=== PATIENT | female | born 1940 | race Caucasian/White ===

== ENCOUNTER 2017-04-25 16:43 | Day surgery (SDC) | payer MEDICARE, BC ==
--- NOTE | 2017-04-25 17:27 | EDM.PDOC ---
ED HPI GENERAL MEDICAL PROBLEM - General Chief Complaint: Abdominal Pain Stated Complaint: HERNIA Time Seen by Provider: 04/25/17 17:21 Source of Information: Reports: Patient History Limitations: Reports: No Limitations - History of Present Illness INITIAL COMMENTS - FREE TEXT/NARRATIVE: Pt with umbilical hernia for years. Now with increased pain x 2 days. No injury. Has noted diarrhea x 2 days. Mild nausea. Denies fever. Last ate about 1:30pm. Onset: Sudden Onset Date: 04/24/17 Duration: Getting Worse Location: Reports: Abdomen Quality: Reports: Burning Severity: Mild Improves with: Reports: Rest Worsens with: Reports: Movement Context: Reports: Other Associated Symptoms: Reports: Nausea/Vomiting Middle Abdomen Pain Score (Numeric/FACES): 2 - Related Data Allergies Allergy/AdvReac Type Severity Reaction Status Date / Time acetaminophen [From Vicodin] Allergy Intermediate GI Verified 04/25/17 17:07 INTOLERANCE codeine Allergy Intermediate GI UPSET Verified 04/25/17 17:07 doxycycline Allergy Intermediate GI Verified 04/25/17 17:07 INTOLERANCE hydrocodone bitartrate Allergy Intermediate GI Verified 04/25/17 17:07 [From Vicodin] INTOLERANCE Home Meds: Home Meds Aspirin [Trish Chewable Aspirin] 81 mg PO DAILY 06/07/13 [History] Calcium Carbonate/Vitamin D3 [Calcarb 600 with Vit D] 1 each PO DAILY 06/07/13 [ History] HCTZ/Triamterene [Maxzide 25-37.5 MG] 1 tab OR BID 06/07/13 [History] Levothyroxine Sodium [Synthroid] 75 mcg PO DAILY 06/07/13 [History] Metoprolol Tartrate 50 mg OR BID 06/07/13 [History] atorvaSTATin [Lipitor] 10 mg PO BEDTIME 06/07/13 [History] MV,Ca,Min/Iron Fum/FA/Vit K [Multi For Her Tablet] 1 each PO DAILY 06/08/13 [ History] Levothyroxine [Synthroid] 88 mcg PO ACBREAKFAST 04/25/17 [History] Past Medical History HEENT History: Reports: Cataract Cardiovascular History: Reports: High Cholesterol, Hypertension Gastrointestinal History: Reports: Cholelithiasis, Hemorrhoids 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: Reports: Prolapsed Uterus Musculoskeletal History: Reports: Osteoporosis Endocrine/Metabolic History: Reports: Diabetes, Type II Hematologic History: Reports: Anemia, Blood Transfusion(s) Dermatologic History: Reports: Cellulitis - Past Surgical History HEENT Surgical History: Reports: Cataract Surgery GI Surgical History: Reports: Appendectomy, Cholecystectomy, Colonoscopy Female Surgical History: Reports: D&C Musculoskeletal Surgical History: Reports: Knee Replacement Social & Family History - Tobacco Use Smoking Status *Q: Never Smoker Years of Tobacco use: 3 Used Tobacco, but Quit: Yes Month Tobacco Last Used: years ago Second Hand Smoke Exposure: No - Caffeine Use Caffeine Use: Reports: Coffee - Alcohol Use Days Per Week of Alcohol Use: 0 - Recreational Drug Use Recreational Drug Use: No ED ROS GENERAL - Review of Systems Review Of Systems: See Below Constitutional: Reports: No Symptoms HEENT: Reports: No Symptoms Respiratory: Reports: No Symptoms Cardiovascular: Reports: No Symptoms GI/Abdominal: Reports: Abdominal Pain, Diarrhea, Nausea : Reports: No Symptoms Musculoskeletal: Reports: No Symptoms Skin: Reports: No Symptoms Neurological: Reports: No Symptoms Psychiatric: Reports: No Symptoms ED EXAM, GI/ABD - Physical Exam Exam: See Below Exam Limited By: No Limitations General Appearance: Alert, WD/WN, No Apparent Distress Ears: Normal External Exam, Normal Canal, Hearing Grossly Normal, Normal TMs Nose: Normal Inspection, Normal Mucosa, No Blood Throat/Mouth: Normal Inspection, Normal Lips, Normal Teeth, Normal Gums, Normal Oropharynx, Normal Voice, No Airway Compromise Head: Atraumatic, Normocephalic Neck: Normal Inspection, Supple, Non-Tender, Full Range of Motion Respiratory/Chest: No Respiratory Distress, Lungs Clear, Normal Breath Sounds, No Accessory Muscle Use, Chest Non-Tender Cardiovascular: Normal Peripheral Pulses, Regular Rate, Rhythm, No Edema, No Gallop, No JVD, No Murmur, No Rub GI/Abdominal Exam: Hernia (umbilical, tender to palpation, does reduce) Extremities: Normal Inspection, Normal Range of Motion, Non-Tender, Normal Capillary Refill, No Pedal Edema Neurological: Alert, Oriented, CN II-XII Intact, Normal Cognition, Normal Gait, Normal Reflexes, No Motor/Sensory Deficits Psychiatric: Normal Affect, Normal Mood Skin Exam: Warm, Dry, Intact, Normal Color, No Rash Course - Vital Signs Last Recorded V/S: Last Vital Signs Temp 98.4 F 04/25/17 16:59 Pulse 89 04/25/17 16:59 Resp 18 04/25/17 16:59 BP 195/81 H 04/25/17 16:59 Pulse Ox 92 L 04/25/17 16:59 - Orders/Labs/Meds Orders: Active Orders 24 hr Category Date Time Status EKG Documentation Completion [RC] ASDIRECTED Care 04/25/17 17:40 Active Lactated Ringers [Ringers, Lactated] 1,000 ml Med 04/25/17 19:00 Active IV ASDIRECTED EKG 12 Lead [EK] Routine Ther 04/25/17 17:40 Ordered Medication Orders Lactated Ringer's (Ringers, Lactated) 1,000 mls @ 200 mls/hr IV ASDIRECTED GERARDO Last Admin: 04/25/17 19:02 Dose: 200 mls/hr Labs: Laboratory Tests 04/25/17 04/25/17 04/25/17 Range/Units 17:37 17:37 17:37 WBC 11.2 H (4.5-11.0) K/uL RBC 4.18 (3.30-5.50) M/uL Hgb 13.1 (12.0-15.0) g/dL Hct 40.3 (36.0-48.0) % MCV 96 (80-98) fL MCH 31 (27-31) pg MCHC 33 (32-36) % Plt Count 249 (150-400) K/uL Neut % (Auto) 71 H (36-66) % Lymph % (Auto) 19 L (24-44) % [place] % (Auto) 9 H (2-6) % Eos % (Auto) 2 (2-4) % Baso % (Auto) 0 (0-1) % Sodium 143 (140-148) mmol/L Potassium 4.1 (3.6-5.2) mmol/L Chloride 104 (100-108) mmol/L Carbon Dioxide 31 (21-32) mmol/L Anion Gap 8.0 (5.0-14.0) mmol/L BUN 29 H (7-18) mg/dL Creatinine 1.3 H (0.6-1.0) mg/dL Est Cr Clr Drug Dosing 26.86 mL/min Estimated GFR (MDRD) 40 L (>60) Glucose 125 H (74-106) mg/dL Lactic Acid 1.8 (0.4-2.0) mmol/L Calcium 9.7 (8.5-10.1) mg/dL Total Bilirubin 0.4 (0.2-1.0) mg/dL AST 18 (15-37) U/L ALT 22 (12-78) U/L Alkaline Phosphatase 85 (46-116) U/L Total Protein 7.7 (6.4-8.2) g/dL Albumin 3.3 L (3.4-5.0) g/dL Globulin 4.4 H (2.3-3.5) g/dL Albumin/Globulin Ratio 0.8 L (1.2-2.2) Meds: Medications Generic Name Dose Route Start Last Admin Trade Name Freq PRN Reason Stop Dose Admin Lactated Ringer's 1,000 mls @ 200 mls/hr 04/25/17 19:00 04/25/17 19:02 Ringers, Lactated IV 200 mls/hr ASDIRECTED GERARDO Administration Discontinued Medications Generic Name Dose Route Start Last Admin Trade Name Freq PRN Reason Stop Dose Admin Cefazolin Sodium/Dextrose 2 gm 50 mls @ 100 mls/hr 04/25/17 18:36 / Premix IV 04/25/17 19:05 ONETIME ONE Departure - Departure Time of Disposition: 19:25 Disposition: Admitted As Inpatient 67 Condition: Fair Clinical Impression: Umbilical hernia Qualifiers: Obstruction and gangrene presence: without obstruction or gangrene Qualified Code(s): K42.9 - Umbilical hernia without obstruction or gangrene - Discharge Information Referrals: Janice Carolina PAID SEARCH MARKETING STRATEGIST [Primary Care Provider] - Forms: ED Department Discharge Additional Instructions: Labs drawn. CBC, CMP, lactic acid reviewed. Surgeon, Dr. Agosto called. EKG completed. Normal sinus rhythm with rate of 84. No acute ST changes present. Discussed options with pt. Pt able to go to OR for umbilical hernia repair today. Discussed risk vs benefit of procedure. Pt cleared today for surgery. Will need to be discharged home with family as she lives alone. Dr Agosto to assume care. Pt transferred to the OR in stable condition. - Problem List & Annotations (1) Umbilical hernia SNOMED Code(s): 747811333, 241144770 Code(s): K42.9 - UMBILICAL HERNIA WITHOUT OBSTRUCTION OR GANGRENE Status: Acute Priority: Medium Current Visit: Yes Qualifiers: Obstruction and gangrene presence: without obstruction or gangrene Qualified Code(s): K42.9 - Umbilical hernia without obstruction or gangrene - My Orders Last 24 Hours: My Active Orders 04/25/17 17:40 EKG Documentation Completion [RC] ASDIRECTED EKG 12 Lead [EK] Routine - Assessment/Plan Last 24 Hours: My Active Orders 04/25/17 17:40 EKG Documentation Completion [RC] ASDIRECTED EKG 12 Lead [EK] Routine
[2017-04-25] MEDS ORDERED: Lactated Ringers 1,000 ML IV SCH (19:00)
[2017-04-25] MEDS ORDERED: Lidocaine 1% with EPINEPHrine 1:100,000 50 ML MDV ONE (19:30)
[2017-04-25] MEDS ORDERED: Bupivacaine 0.5% 50 ML MDV ONE (19:30)
[2017-04-25] MEDS ORDERED: Succinylcholine 200 MG/10 ML MDV ONE (19:39)
[2017-04-25] MEDS ORDERED: Rocuronium 50 MG/5 ML Vial ONE (19:39)
[2017-04-25] MEDS ORDERED: Dexamethasone 4 MG/ML SDV ONE (19:39)
[2017-04-25] MEDS ORDERED: Propofol 200 MG/20 ML SDV ONE (19:39)
[2017-04-25] MEDS ORDERED: Glycopyrrolate 0.2 MG/ML 5 ML MDV ONE (19:39)
[2017-04-25] MEDS ORDERED: Midazolam 1 MG/ML 2 ML SDV ONE (19:39)
[2017-04-25] MEDS ORDERED: Ondansetron 4 MG/2 ML SDV ONE (19:39)
[2017-04-25] MEDS ORDERED: Neostigmine Methylsulfate 1 MG/ML 5 ML Syringe ONE (19:39)
[2017-04-25] MEDS: ceFAZolin 2 GM in Premix Bag 1 BAG IV ONE ×2 (19:40→19:41)
[2017-04-25] MEDS ORDERED: Naloxone 0.4 MG/ML SDV ONE (20:38)
[2017-04-25] MEDS ORDERED: Labetalol 20 MG/4 ML Syringe IVPUSH ONE ×2 (20:56→21:18)
[2017-04-25] MEDS ORDERED: Labetalol 20 MG/4 ML Syringe ONE (20:59)
[2017-04-25] MEDS ORDERED: Meperidine PF 50 MG/ML Syringe IM ONE (21:05)
[2017-04-25] MEDS ORDERED: hydrOXYzine HCl 100 MG/2 ML SDV IM ONE (21:06)
[2017-04-25] MEDS ORDERED: hydrOXYzine HCl 100 MG/2 ML SDV ONE (21:08)
[2017-04-25] MEDS ORDERED: Meperidine PF 50 MG/ML Syringe ONE (21:08)
[2017-04-25] MEDS ORDERED: Docusate Sodium 100 MG Cap PO PRN (21:14)
[2017-04-25] MEDS ORDERED: Ondansetron 4 MG/2 ML SDV IVPUSH PRN (21:14)
[2017-04-25] MEDS ORDERED: D5 1/2 NS w/ 20 mEq/L KCl 1,000 ML IV SCH (21:30)
[2017-04-25] MEDS ORDERED: fentaNYL/Normal Saline 600 MCG/30 ML PCA Vial IV PRN (22:04)
[2017-04-25] MEDS ORDERED: Naloxone 0.4 MG/ML SDV IVPUSH PRN (22:04)
[2017-04-25] MEDS ORDERED: Nitroglycerin 2% Oint 1 GM UD Packet TOP PRN (22:21)
[2017-04-25] MEDS: Metoprolol Tartrate 50 MG Tab PO SCH (22:39)
[2017-04-26] MEDS ORDERED: Levothyroxine 88 MCG Tab PO SCH (07:30)
[2017-04-26] MEDS ORDERED: Levothyroxine 75 MCG Tab PO SCH (07:30)
[2017-04-26] MEDS ORDERED: Calcium Carbonate/Vitamin D3 1500 MG-400 Units Tab PO SCH (09:00)
[2017-04-26] MEDS ORDERED: Hydrochlorothiazide/Triamterene 25-37.5 MG Cap PO SCH (09:00)
[2017-04-26] MEDS: Metoprolol Tartrate 50 MG Tab PO SCH (09:43)
[2017-04-26] MEDS ORDERED: traMADol 50 MG Tab PO PRN (10:38)
--- NOTE | 2017-04-26 10:44 | PCM.DCSUM1 ---
Discharge Summary - Hospital Course Free Text/Narrative:: This 76 year old white female has had an umbilical hernia for a long time which was always reducible. Two days ago it became incarcerated, causing her to come to the ER last night with a lot of umbilical pain. She was taken to the OR where her hernia was reduced (it was omentum) and then repaired with an 8 cm Ventralex mesh patch with straps. She received Ancef 2 grams IV preoperatively. She was kept over night. She feels much better today and is eating. She is discharged to home in good condition to follow up with me in about two weeks. Brief History: See above narrative. - Discharge Data Discharge Date: 04/26/17 Discharge Disposition: Home, Self-Care 01 Condition: Good - Discharge Diagnosis/Problem(s) (1) Umbilical hernia SNOMED Code(s): 718176959, [id number] ICD Code: K42.9 - UMBILICAL HERNIA WITHOUT OBSTRUCTION OR GANGRENE Status: Acute Priority: Medium Current Visit: Yes Qualifiers: Obstruction and gangrene presence: without obstruction or gangrene Qualified Code(s): K42.9 - Umbilical hernia without obstruction or gangrene - Patient Summary/Data Operative Procedure(s) Performed: See above narrative. Consults: Consultations 04/25/17 21:14 Respiratory Care Assess and Treatment [CONS] Routine Comment: Physician Instructions: Hospital Course: See above narrative. - Patient Instructions Diet: Usual Diet as Tolerated Activity: No Lifting Over 10 Pounds (Until I see her in about two weeks. ), No Strenuous Activities Driving, Other: Do not drive while taking Tramadol. Showering/Bathing, Other: December shower Thursday. Notify Provider of: Fever, Increased Pain, Swelling and Redness, Drainage, Nausea and/or Vomiting - Discharge Plan Prescriptions/Med Rec: traMADol [Ultram] 50 mg PO Q6H PRN #30 tab PRN Reason: Abdominal Pain Home Medications: Home Meds Calcium Carbonate/Vitamin D3 [Calcarb 600 with Vit D] 1 each PO DAILY 06/07/13 [ History] HCTZ/Triamterene [Maxzide 25-37.5 MG] 1 tab OR BID 06/07/13 [History] Metoprolol Tartrate 50 mg OR BID 06/07/13 [History] atorvaSTATin [Lipitor] 10 mg PO BEDTIME 06/07/13 [History] MV,Ca,Min/Iron Fum/FA/Vit K [Multi For Her Tablet] 1 each PO DAILY 06/08/13 [ History] Levothyroxine [Synthroid] 88 mcg PO ACBREAKFAST 04/25/17 [History] traMADol [Ultram] 50 mg PO Q6H PRN #30 tab 04/25/17 [Rx] Forms: ED Department Discharge Referrals: Felix Butterfield MD [Physician] - (See me in about two weeks in [facility]. ) Janice Carolina NP [Primary Care Provider] - - Discharge Summary/Plan Comment DC Time >30 min.: Yes Discharge Summary/Plan Comment: See above narrative. - Patient Data Vitals - Most Recent: Last Vital Signs Temp 96.7 F 04/26/17 07:35 Pulse 70 04/26/17 09:43 Resp 16 04/26/17 07:35 BP 129/66 04/26/17 09:43 Pulse Ox 94 L 04/26/17 07:35 Weight - Most Recent: 164 lb 14.492 oz I&O - Last 24 hours: Intake & Output 04/25/17 04/26/17 04/26/17 22:59 06:59 14:59 Intake Total 689 120 Output Total 200 325 Balance 489 -205 Lab Results - Last 24 hrs: Laboratory Results - last 24 hr 04/25/17 04/25/17 04/25/17 Range/Units 17:37 17:37 17:37 WBC 11.2 H (4.5-11.0) K/uL RBC 4.18 (3.30-5.50) M/uL Hgb 13.1 (12.0-15.0) g/dL Hct 40.3 (36.0-48.0) % MCV 96 (80-98) fL MCH 31 (27-31) pg MCHC 33 (32-36) % Plt Count 249 (150-400) K/uL Neut % (Auto) 71 H (36-66) % Lymph % (Auto) 19 L (24-44) % [place] % (Auto) 9 H (2-6) % Eos % (Auto) 2 (2-4) % Baso % (Auto) 0 (0-1) % Sodium 143 (140-148) mmol/L Potassium 4.1 (3.6-5.2) mmol/L Chloride 104 (100-108) mmol/L Carbon Dioxide 31 (21-32) mmol/L Anion Gap 8.0 (5.0-14.0) mmol/L BUN 29 H (7-18) mg/dL Creatinine 1.3 H (0.6-1.0) mg/dL Est Cr Clr Drug Dosing 26.86 mL/min Estimated GFR (MDRD) 40 L (>60) Glucose 125 H (74-106) mg/dL Lactic Acid 1.8 (0.4-2.0) mmol/L Calcium 9.7 (8.5-10.1) mg/dL Total Bilirubin 0.4 (0.2-1.0) mg/dL AST 18 (15-37) U/L ALT 22 (12-78) U/L Alkaline Phosphatase 85 (46-116) U/L Total Protein 7.7 (6.4-8.2) g/dL Albumin 3.3 L (3.4-5.0) g/dL Globulin 4.4 H (2.3-3.5) g/dL Albumin/Globulin Ratio 0.8 L (1.2-2.2) Med Orders - Current: Current Medications Atorvastatin Calcium (Lipitor) 10 mg PO BEDTIME [facility] Calcium Carbonate (Caltrate 600+D 1500 Mg-400 Units) 1 tab PO DAILY [facility] Last Admin: 04/26/17 09:42 Dose: 1 tab Docusate Sodium (Colace) 100 mg PO BID PRN PRN Reason: Constipation Fentanyl Citrate (Fentanyl In Ns 20 Mcg/Ml 30 Ml [facility] Physicist) 0 mcg IV ASDIRECTED PRN; Protocol PRN Reason: Pain Last Admin: 04/25/17 22:34 Dose: 600 mcg Lactated Ringer's (Ringers, Lactated) 1,000 mls @ 200 mls/hr IV ASDIRECTED GERARDO Last Admin: 04/25/17 19:02 Dose: 200 mls/hr Potassium Chloride/Dextrose/Sod Cl (D5 1/2 Ns W/ 20 Meq/L Kcl) 1,000 mls @ 75 mls/hr IV ASDIRECTED GERARDO Last Admin: 04/25/17 22:40 Dose: 75 mls/hr Levothyroxine Sodium (Synthroid) 88 mcg PO ACBREAKFAST GERARDO Last Admin: 04/26/17 09:41 Dose: 88 mcg Metoprolol Tartrate (Lopressor) 50 mg PO BID [facility] Last Admin: 04/26/17 09:43 Dose: 50 mg Miscellaneous Information (Remove Patch) 1 ea TRDERM Q6H PRN PRN Reason: IF NITRO OINT USED Naloxone HCl (Narcan) 0.4 mg IVPUSH Q2M PRN PRN Reason: Respiratory Distress Nitroglycerin (Nitro-Bid 2%) 1 gm TOP Q6H PRN PRN Reason: BP > 160/100 Ondansetron HCl (Zofran) 4 mg IVPUSH Q6H PRN PRN Reason: Nausea/Vomiting Tramadol HCl (Ultram) 50 mg PO Q4H PRN PRN Reason: Abdominal Pain Triamterene/HCTZ (Dyazide 25-37.5 Mg) 1 each PO BID [facility] Last Admin: 04/26/17 09:42 Dose: 1 each Discontinued Medications Bupivacaine HCl (Marcaine 0.5%) Confirm Administered Dose 50 ml .ROUTE .STK-MED ONE Stop: 04/25/17 19:31 Last Admin: 04/25/17 20:29 Dose: 5 ml Dexamethasone (Dexamethasone) Confirm Administered Dose 4 mg .ROUTE .STK-MED ONE Stop: 04/25/17 19:40 Fentanyl Citrate (Fentanyl) Confirm Administered Dose 500 mcg .ROUTE .STK-MED ONE Stop: 04/25/17 19:40 Glycopyrrolate (Robinul) Confirm Administered Dose 1 mg .ROUTE .STK-MED ONE Stop: 04/25/17 19:40 Hydroxyzine HCl (Vistaril) 50 mg IM ONETIME ONE Stop: 04/25/17 21:07 Last Admin: 04/25/17 21:14 Dose: 50 mg Hydroxyzine HCl (Vistaril) Confirm Administered Dose 100 mg .ROUTE .STK-MED ONE Stop: 04/25/17 21:09 Last Admin: 04/25/17 22:32 Dose: Not Given Cefazolin Sodium/Dextrose 2 gm (/ Premix) 50 mls @ 100 mls/hr IV ONETIME ONE Stop: 04/25/17 19:05 Last Admin: 04/25/17 19:41 Dose: 100 mls/hr Labetalol HCl (Normodyne) 5 mg IVPUSH ONETIME ONE PRN Reason: Protocol Stop: 04/25/17 20:57 Last Admin: 04/25/17 21:03 Dose: 5 mg Labetalol HCl (Normodyne) Confirm Administered Dose 20 mg .ROUTE .STK-MED ONE Stop: 04/25/17 21:00 Last Admin: 04/25/17 21:22 Dose: 5 mg Labetalol HCl (Normodyne) 5 mg IVPUSH ONETIME ONE PRN Reason: Protocol Stop: 04/25/17 21:19 Last Admin: 04/25/17 22:32 Dose: Not Given Lidocaine/Epinephrine (Xylocaine 1% With Epinephrine 1:100,000) Confirm Administered Dose 50 ml .ROUTE .STK-MED ONE Stop: 04/25/17 19:31 Last Admin: 04/25/17 20:29 Dose: 5 ml Meperidine HCl (Demerol) 50 mg IM ONETIME ONE Stop: 04/25/17 21:06 Last Admin: 04/25/17 22:31 Dose: Not Given Meperidine HCl (Demerol) Confirm Administered Dose 50 mg .ROUTE .STK-MED ONE Stop: 04/25/17 21:09 Last Admin: 04/25/17 21:14 Dose: 50 mg Midazolam HCl (Versed 1 Mg/Ml) Confirm Administered Dose 2 mg .ROUTE .STK-MED ONE Stop: 04/25/17 19:40 Naloxone HCl (Narcan) Confirm Administered Dose 0.4 mg .ROUTE .STK-MED ONE Stop: 04/25/17 20:39 Neostigmine Methylsulfate (Neostigmine) Confirm Administered Dose 5 mg .ROUTE .STK-MED ONE Stop: 04/25/17 19:40 Ondansetron HCl (Zofran) Confirm Administered Dose 4 mg .ROUTE .STK-MED ONE Stop: 04/25/17 19:40 Propofol (Diprivan 20 Ml) Confirm Administered Dose 200 mg .ROUTE .STK-MED ONE Stop: 04/25/17 19:40 Rocuronium Villalba (Zemuron) Confirm Administered Dose 50 mg .ROUTE .STK-MED ONE Stop: 04/25/17 19:40 Succinylcholine Chloride (Quelicin) Confirm Administered Dose 200 mg .ROUTE .STK -MED ONE Stop: 04/25/17 19:40 *Q Meaningful Use (DIS) - VTE *Q VTE Criteria *Q: - Stroke *Q Stroke Criteria *Q: - AMI *Q AMI Criteria *Q:
[2017-04-26 10:54] VITALS: BP 144/66
[2017-04-26] MEDS ORDERED: atorvaSTATin 10 MG Tab PO SCH (21:00)
--- NOTE | 2017-04-28 10:31 | OR ---
DATE OF PROCEDURE: 04/25/2017 PREOPERATIVE DIAGNOSIS: Incarcerated umbilical hernia. POSTOPERATIVE DIAGNOSIS: Incarcerated with omentum umbilical hernia. PROCEDURE: Reduction of incarcerated umbilical hernia and repair with an 8 cm Ventralex mesh patch with straps. ANESTHESIA: General endotracheal. INDICATION: This is a 76-year-old white female who has an umbilical hernia. This has really not caused much problems until yesterday when the pain became quite severe, was incarcerated, she could not reduce it. She presented to the emergency room where they could not reduce it. She was taken to the operating room for reduction and repair of this incarcerated umbilical hernia. I counseled her for surgery including placing mesh and she gave her informed consent to proceed. DESCRIPTION OF PROCEDURE: After adequate general endotracheal anesthesia was obtained, the patient's abdomen was prepped and draped in the usual sterile fashion. Time -out was held. An infraumbilical semicircular incision was made. The umbilicus was from the hernia sac and the sac was dissected free, excised and delivered from the field. It was noted that the sac was filled with omentum. We distended the omentum outward to narrow the body of it and we were then digitally able to reduce the omentum back into the abdominal cavity. We obtained an 8 cm in diameter circular Ventralex mesh patch with straps. This was placed down underneath the fascia, through the defect. The straps were pulled up and cut to appropriate length and attached to the anterior fascia with horizontal mattress stitches of 2-0 Vicryl. All looked well. The hernia defect was closed over the mesh with a running stitch of 2-0 Vicryl. The umbilicus was reattached to the underlying fascia with an interrupted stitch of 2-0 Vicryl. Lidocaine 1% with epinephrine in a 50:50 mix with 0.5% Marcaine was infiltrated about the incision but not so that would affect the umbilical flap. The skin was then closed with a subcuticular stitch of 4-0 Vicryl. Dermabond was applied. The anesthesia was reversed. She was extubated and brought to recovery room in good condition. Felix Butterfield MD /[id number] MADI
== END 2017-04-26 13:37 | disposition home or self-care (01) ==
LOC: JP.ED 16:43 → JP.SDS 19:40 → JP.MS 22:06 → JP.SDS 04-26 13:37
PROVIDERS: ATTEND Surgery
DX: K42.0 Umbilical hernia with obstruction, without gangrene (principal); I10 Essential (primary) hypertension; E78.00 Pure hypercholesterolemia, unspecified; E11.9 Type 2 diabetes mellitus without complications; Z79.82 Long term (current) use of aspirin; Z79.899 Other long term (current) drug therapy; Z88.1 Allergy status to other antibiotic agents; Z88.8 Allergy status to other drugs, medicaments and biological substances; Z90.49 Acquired absence of other specified parts of digestive tract; Z98.890 Other specified postprocedural states; Z96.659 Presence of unspecified artificial knee joint
CPT/HCPCS: 36415; 49587; 80053; 83605; 85025; 88302; 93005; 93010; 94762; 96361; 96365; 99285; A9270; C1781; J0690; J1100; J2175; J2250; J2310; J2405; J2704; J2710; J3010; J3410; J3480; J7120; J0330

== ENCOUNTER 2018-10-11 06:32 | Day surgery (SDC) | payer MEDICARE, BC ==
[2018-10-11] MEDS ORDERED: Lactated Ringers 1,000 ML IV SCH (07:00)
[2018-10-11] MEDS ORDERED: Midazolam 1 MG/ML 2 ML SDV ONE (07:17)
[2018-10-11] MEDS ORDERED: Propofol 200 MG/20 ML SDV ONE (07:17)
[2018-10-11] MEDS ORDERED: fentaNYL 100 MCG/2 ML SDV ONE (07:17)
[2018-10-11] MEDS ORDERED: Ampicillin 2 GM in Sodium Chloride 0.9% 100 ML IV ONE (07:45)
[2018-10-11 09:25] VITALS: BP 145/88
--- NOTE | 2018-10-12 07:26 | OR ---
DATE OF PROCEDURE: 10/11/2018 PREOPERATIVE DIAGNOSES: History of colon polyps, diarrhea. POSTOPERATIVE DIAGNOSES: History of colon polyps, diarrhea. PROCEDURE: Colonoscopy to the cecum with random colonic biopsies. SURGEON: Felix Butterfield MD ANESTHESIA: IV anesthesia with monitored anesthesia care. INDICATION: This 77-year-old white female is referred for a colonoscopy because of a history of colon polyp. She says she was supposed to have another colonoscopy in 5 years, but it has been 7 years since her last colonoscopic exam. She complains of diarrhea, which is chronic. I counseled her for a colonoscopy with possible biopsy and/or polypectomy, including risks and alternatives, and she gave her informed consent to proceed. PROCEDURE IN DETAIL: The patient was placed in the left lateral decubitus position. IV anesthesia was administered by the Anesthesia Service. Time-out was held. A rectal exam was performed, which was unremarkable. The flexible video Olympus colonoscope was introduced through her anus, up her rectum, out her colon, all the way to the cecum. Once the cecum was reached, the scope was slowly withdrawn, examining the mucosa throughout. No mucosal abnormalities were noted. We did obtain random colonic biopsies throughout her entire colon, looking for microscopic colitis. The scope was retroflexed in the rectum with the distal rectum showing some hemorrhoids, otherwise unremarkable. The scope was straightened and removed. She tolerated the procedure well. Felix Butterfield MD /[id number]
== END 2018-10-11 10:15 | disposition home or self-care (01) ==
LOC: JP.SDS 06:32
PROVIDERS: ATTEND Surgery
DX: K52.9 Noninfective gastroenteritis and colitis, unspecified (principal); K64.9 Unspecified hemorrhoids; I10 Essential (primary) hypertension; E11.9 Type 2 diabetes mellitus without complications; Z86.010 Personal history of colon polyps
CPT/HCPCS: 45380; J0290; J2250; J2704; J3010; J7030; J7120; 88305

== ENCOUNTER 2018-12-18 16:49 | Emergency (ER) | payer MEDICARE, BC ==
[2018-12-18] MEDS ORDERED: Nitroglycerin 0.4 MG Tab.SL SL PRN (18:39)
[2018-12-18] MEDS ORDERED: Sodium Chloride 0.9% 10 ML Syringe FLUSH PRN (18:39)
--- NOTE | 2018-12-18 18:46 | EDM.PDOC ---
ED HPI GENERAL MEDICAL PROBLEM - General Chief Complaint: Respiratory Problem Stated Complaint: SOB Time Seen by Provider: 12/18/18 18:24 Source of Information: Reports: Patient, Family, RN Notes Reviewed History Limitations: Reports: No Limitations - History of Present Illness INITIAL COMMENTS - FREE TEXT/NARRATIVE: 78-year-old female presents emergency department today with complaint of shortness of breath, she states she's been progressively getting more short of breath over the last couple months was evaluated in the clinic on 3 days prior felt to have community-acquired pneumonia started on antibiotics of Ceftin and azithromycin given an albuterol inhaler, she states the headache inhaler does make her feel better for about an hour. Her shortness of breath is positional worse when she bends over to tie her shoes. She's noticed increasing shortness of breath when she goes up the stairs worse when she lies down she has to sit in a chair to help with breathing. She has no heart history she has not noticed a significant weight gain however she does have some edema in her lower extremities which is new - Related Data Allergies Allergy/AdvReac Type Severity Reaction Status Date / Time acetaminophen [From Vicodin] Allergy Intermediate GI Verified 12/18/18 18:04 INTOLERANCE codeine Allergy Intermediate GI UPSET Verified 12/18/18 18:04 doxycycline Allergy Intermediate GI Verified 12/18/18 18:04 INTOLERANCE hydrocodone bitartrate Allergy Intermediate GI Verified 12/18/18 18:04 [From Vicodin] INTOLERANCE indomethacin Allergy Diarrhea Verified 12/18/18 18:04 Home Meds: Home Meds HCTZ/Triamterene [Maxzide 25-37.5 MG] 1 tab OR DAILY 06/07/13 [History] Metoprolol Tartrate 50 mg OR BID 06/07/13 [History] atorvaSTATin [Lipitor] 10 mg PO BEDTIME 06/07/13 [History] MV,Ca,Min/Iron Fum/FA/Vit K [Multi For Her Tablet] 1 each PO DAILY 06/08/13 [ History] Levothyroxine [Synthroid] 88 mcg PO ACBREAKFAST 04/25/17 [History] Allopurinol [Zyloprim] 200 mg PO DAILY 10/07/18 [History] Aspirin [Ecotrin] 1 tab PO DAILY 10/07/18 [History] Cholestyramine/Sucrose [Cholestyramine Packet] 4 gm PO DAILY 10/07/18 [History] Dextran 70/Hypromellose [Artificial Tears] 1 drp OP DAILY 10/07/18 [History] Albuterol [Ventolin HFA] 2 puff IH Q4HR 12/18/18 [History] Azithromycin [Zithromax] 250 mg PO DAILY 12/18/18 [History] Cefdinir [Omnicef] 300 mg PO BID 12/18/18 [History] Past Medical History HEENT History: Reports: Cataract Cardiovascular History: Reports: High Cholesterol, Hypertension Respiratory History: Reports: SOB Other Respiratory History: WALKING DISTANCE Gastrointestinal History: Reports: Cholelithiasis, Hemorrhoids, Other (See Below ) Other Gastrointestinal History: DIARRHEA Genitourinary History: Reports: Other (See Below) Other Genitourinary History: pt. to see a urologist 05/2017. pt. 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: , Prolapsed Uterus Musculoskeletal History: Reports: Arthritis, Gout, Osteoarthritis, Osteoporosis Endocrine/Metabolic History: Reports: Diabetes, Type II, Hypoparathyroidism Hematologic History: Reports: Anemia, Blood Transfusion(s) Dermatologic History: Reports: Cellulitis - Infectious Disease History Infectious Disease History: Reports: Chicken Pox, Measles, Meningitis, Mumps - Past Surgical History HEENT Surgical History: Reports: Cataract Surgery, Oral Surgery Cardiovascular Surgical History: Reports: None Respiratory Surgical History: Reports: None GI Surgical History: Reports: Appendectomy, Cholecystectomy, Colonoscopy, Hernia , Abdominal Other GI Surgeries/Procedures: HIATAL HERNIA Female Surgical History: Reports: D&C Musculoskeletal Surgical History: Reports: Knee Replacement Other Musculoskeletal Surgeries/Procedures:: BOTH KNEES Dermatological Surgical History: Reports: Other (See Below) Social & Family History - Family History Family Medical History: Noncontributory - Tobacco Use Smoking Status *Q: Former Smoker Used Tobacco, but Quit: Yes Month/Year Tobacco Last Used: 1960 - Caffeine Use Caffeine Use: Reports: Soda - Recreational Drug Use Recreational Drug Use: No ED ROS GENERAL - Review of Systems Review Of Systems: See Below Constitutional: Denies: Fever, Chills, Weakness, Diaphoresis HEENT: Reports: No Symptoms Respiratory: Reports: Shortness of Breath, Cough. Denies: Wheezing, Sputum Cardiovascular: Reports: Dyspnea on Exertion GI/Abdominal: Reports: No Symptoms : Reports: No Symptoms Musculoskeletal: Reports: No Symptoms Skin: Reports: No Symptoms (He had to for me as well) Neurological: Reports: No Symptoms ED EXAM, GENERAL - Physical Exam Exam: See Below (Lab last to pick that after picked a headset to pick which one) Exam Limited By: No Limitations General Appearance: Alert, No Apparent Distress Neck: Normal Inspection, Supple, Non-Tender, Full Range of Motion Respiratory/Chest: No Respiratory Distress, Lungs Clear, Normal Breath Sounds, No Accessory Muscle Use, Chest Non-Tender Cardiovascular: No Murmur, Bradycardia GI/Abdominal: Soft, Non-Tender Extremities: Normal Inspection, Normal Range of Motion, Pedal Edema Course - Vital Signs Last Recorded V/S: Last Vital Signs Temp 98.3 F 12/18/18 18:00 Pulse 43 L 12/18/18 22:25 Resp 25 H 12/18/18 22:25 BP 174/92 H 12/18/18 22:25 Pulse Ox 94 L 12/18/18 22:25 - Orders/Labs/Meds Orders: Active Orders 24 hr Category Date Time Status Cardiac Monitoring [RC] .As Directed Care 12/18/18 18:39 Active EKG Documentation Completion [RC] ASDIRECTED Care 12/18/18 18:41 Active Peripheral IV Care [RC] . DIRECTED Care 12/18/18 18:41 Active Nitroglycerin [Nitrostat] Med 12/18/18 18:39 Active 0.4 mg SL Q5M PRN Sodium Chloride 0.9% [Saline Flush] Med 12/18/18 18:39 Active 10 ml FLUSH ASDIRECTED PRN Peripheral IV Insertion Adult [OM.PC] Stat Oth 12/18/18 18:39 Ordered Saline Lock Insert [OM.PC] Stat Oth 12/18/18 18:39 Ordered EKG 12 Lead [EK] Stat Ther 12/18/18 18:41 Ordered Medication Orders Nitroglycerin (Nitrostat) 0.4 mg SL Q5M PRN PRN Reason: Chest Pain Stop: 12/19/18 18:40 Last Admin: 12/18/18 18:56 Dose: 0.4 mg Sodium Chloride (Saline Flush) 10 ml FLUSH ASDIRECTED PRN PRN Reason: Keep Vein Open Last Admin: 12/18/18 18:56 Dose: 10 ml Labs: Laboratory Tests 0412/18/18 12/18/18 Range/Units 18:39 18:39 18:39 WBC 9.2 (4.5-11.0) K/uL RBC 3.48 (3.30-5.50) M/uL Hgb 10.8 L D (12.0-15.0) g/dL Hct 34.2 L (36.0-48.0) % MCV 98 (80-98) fL MCH 31 (27-31) pg MCHC 32 (32-36) % Plt Count 177 (150-400) K/uL Neut % (Auto) 71 H (36-66) % Lymph % (Auto) 17 L (24-44) % [place] % (Auto) 10 H (2-6) % Eos % (Auto) 2 (2-4) % Baso % (Auto) 0 (0-1) % D-Dimer, Quantitative (0.0-400.0) ng/mL Sodium 139 L (140-148) mmol/L Potassium 4.8 (3.6-5.2) mmol/L Chloride 106 (100-108) mmol/L Carbon Dioxide 22 (21-32) mmol/L Anion Gap 15.8 H (5.0-14.0) mmol/L BUN 27 H (7-18) mg/dL Creatinine 1.3 H (0.6-1.0) mg/dL Est Cr Clr Drug Dosing 26.03 mL/min Estimated GFR (MDRD) 40 L (>60) Glucose 111 H (74-106) mg/dL Lactic Acid 1.2 (0.4-2.0) mmol/L Calcium 9.8 (8.5-10.1) mg/dL Total Bilirubin 0.8 D (0.2-1.0) mg/dL AST 18 (15-37) U/L ALT 30 (12-78) U/L Alkaline Phosphatase 74 (46-116) U/L Troponin I < 0.017 (0.000-0.056) ng/mL NT-Pro-B Natriuret Pep 1202 H (5-450) pg/mL Total Protein 6.7 (6.4-8.2) g/dL Albumin 2.9 L (3.4-5.0) g/dL Globulin 3.8 H (2.3-3.5) g/dL Albumin/Globulin Ratio 0.8 L (1.2-2.2) Lipase 132 (73-393) U/L 12/18/18 Range/Units 21:48 WBC (4.5-11.0) K/uL RBC (3.30-5.50) M/uL Hgb (12.0-15.0) g/dL Hct (36.0-48.0) % MCV (80-98) fL MCH (27-31) pg MCHC (32-36) % Plt Count (150-400) K/uL Neut % (Auto) (36-66) % Lymph % (Auto) (24-44) % [place] % (Auto) (2-6) % Eos % (Auto) (2-4) % Baso % (Auto) (0-1) % D-Dimer, Quantitative 238 (0.0-400.0) ng/mL Sodium (140-148) mmol/L Potassium (3.6-5.2) mmol/L Chloride (100-108) mmol/L Carbon Dioxide (21-32) mmol/L Anion Gap (5.0-14.0) mmol/L BUN (7-18) mg/dL Creatinine (0.6-1.0) mg/dL Est Cr Clr Drug Dosing mL/min Estimated GFR (MDRD) (>60) Glucose (74-106) mg/dL Lactic Acid (0.4-2.0) mmol/L Calcium (8.5-10.1) mg/dL Total Bilirubin (0.2-1.0) mg/dL AST (15-37) U/L ALT (12-78) U/L Alkaline Phosphatase (46-116) U/L Troponin I (0.000-0.056) ng/mL NT-Pro-B Natriuret Pep (5-450) pg/mL Total Protein (6.4-8.2) g/dL Albumin (3.4-5.0) g/dL Globulin (2.3-3.5) g/dL Albumin/Globulin Ratio (1.2-2.2) Lipase (73-393) U/L Meds: Medications Generic Name Dose Route Start Last Admin Trade Name Freq PRN Reason Stop Dose Admin Nitroglycerin 0.4 mg 12/18/18 18:39 12/18/18 18:56 Nitrostat SL 12/19/18 18:40 0.4 mg Q5M PRN Administration Chest Pain Sodium Chloride 10 ml 12/18/18 18:39 12/18/18 18:56 Saline Flush FLUSH 10 ml ASDIRECTED PRN Administration Keep Vein Open Departure - Departure Time of Disposition: 22:51 Disposition: DC/Tfer to Acute Hospital 02 Reason for Transfer *Q: Other Condition: Fair Clinical Impression: Mobitz II Referrals: Wilton Toure NP [Primary Care Provider] - Forms: ED Department Discharge - My Orders Last 24 Hours: My Active Orders 12/18/18 18:39 Cardiac Monitoring [RC] .As Directed Nitroglycerin [Nitrostat] 0.4 mg SL Q5M PRN Sodium Chloride 0.9% [Saline Flush] 10 ml FLUSH ASDIRECTED PRN Peripheral IV Insertion Adult [OM.PC] Stat Saline Lock Insert [OM.PC] Stat 12/18/18 18:41 EKG Documentation Completion [RC] ASDIRECTED Peripheral IV Care [RC] . DIRECTED EKG 12 Lead [EK] Stat - Assessment/Plan Last 24 Hours: My Active Orders 12/18/18 18:39 Cardiac Monitoring [RC] .As Directed Nitroglycerin [Nitrostat] 0.4 mg SL Q5M PRN Sodium Chloride 0.9% [Saline Flush] 10 ml FLUSH ASDIRECTED PRN Peripheral IV Insertion Adult [OM.PC] Stat Saline Lock Insert [OM.PC] Stat 12/18/18 18:41 EKG Documentation Completion [RC] ASDIRECTED Peripheral IV Care [RC] . DIRECTED EKG 12 Lead [EK] Stat Plan: Assessment Acuity = acute Site and laterality = dyspnea with Mobitz type II arrhythmia Etiology = unknown etiology Manifestations = hypoxia on exertion] Location of injury = Home Lab values = hemoglobin low at 10.8 consistent normochromic anemia d-dimer normal limits to 38 creatinine elevated 1.3 consistent with chronic renal failure stage G IIIB lactic acid normal at 1.2 BNP slightly elevated 08/25/01 consistent with fluid overload type pattern CT scan of the chest does show clustered micronodular opacities right lower lobe and elevated right hemidiaphragm prominent shotty mediastinal lymph nodes suggestive of granulomatous disease Plan Called discussed case with Dr. Bowen at 22:50 hospitalist production mechanic at [facility] kindly accepted the patient will be transported via EMS ground This note was dictated using [employer] voice recognition software please call with any questions on syntax or grammar.
--- NOTE | 2018-12-18 19:50 | CRLCR ---
INDICATION: Chest pain or shortness breath. TECHNIQUE: Two views. FINDINGS: Elevation right hemidiaphragm. Small right effusion may be present. Pulmonary vascular prominence is upper normal. Hazy attenuation at the left base partially obscuring the diaphragm likely some atelectasis and scar. Atherosclerosis of the abdominal aorta on the lateral. Impression : Age-indeterminate elevation right hemidiaphragm. Some scarring and atelectasis left base. Dictated by Bret Barker MD @ Dec 18 2018 7:46PM Signed by Dr. Bret Barker @ Dec 18 2018 7:47PM
--- NOTE | 2018-12-18 21:43 | CRLCT ---
INDICATION: Shortness of breath. TECHNIQUE: CT chest without contrast. COMPARISON: Chest radiograph 12/18/2018. FINDINGS: There is motion artifact limiting the quality of the exam Cardiovascular structures: Heart size is normal. Coronary artery calcification noted. Thoracic aorta and main pulmonary artery are normal in caliber. Mediastinum and cas: There are prominent shotty mediastinal lymph nodes. A few are calcified. No definite hilar lymphadenopathy. Small nodules in the right thyroid lobe. Lungs: There is elevation of the right hemidiaphragm with volume loss in the right middle and lower lobes. Cluster of micro nodular opacities in the right lower lobe (image 18). Minimal ground-glass opacity in the left lower lobe. No pneumothorax. Pleura and pericardium: No effusions. Chest wall and axilla: No mass or adenopathy. Bones: No acute abnormality. No suspicious bone lesion. Upper abdomen: Unremarkable. IMPRESSION: 1. Elevation of the right hemidiaphragm with volume loss in the right middle and lower lobes. Comparison to remote prior imaging would demonstrate stability of this finding. 2. Clustered micronodular opacities in the right lower lobe and small focal area of micronodular and ground-glass opacity in the left lower lobe. This may represent an infectious or inflammatory process. 3. Prominent shotty mediastinal lymph nodes. A few of these are calcified. This suggests sequelae of granulomatous disease. 4. Coronary artery atherosclerotic calcification. Please note that all CT scans at this facility use dose modulation, iterative reconstruction, and/or weight-based dosing when appropriate to reduce radiation dose to as low as reasonably achievable. Dictated by Xander Peña MD @ Dec 18 2018 9:30PM Signed by Dr. Xander Peña @ Dec 18 2018 9:40PM
[2018-12-18 22:34] VITALS: BP 174/92
== END 2018-12-18 23:30 ==
LOC: JP.ED 16:49
DX: I44.1 Atrioventricular block, second degree (principal); E11.9 Type 2 diabetes mellitus without complications; I10 Essential (primary) hypertension; Z88.5 Allergy status to narcotic agent; Z79.899 Other long term (current) drug therapy; Z87.891 Personal history of nicotine dependence
CPT/HCPCS: 36415; 71046; 71250; 80053; 83605; 83690; 83880; 84484; 85025; 85379; 93005; 99285; A9270; 93010

== ENCOUNTER 2019-02-18 21:41 | Inpatient (IN) | payer MEDICARE, BC ==
[2019-02-18] MEDS ORDERED: Acetaminophen 325 MG Tab PO ONE (22:54)
[2019-02-18] MEDS ORDERED: Lactated Ringers 1,000 ML IV SCH (23:00)
--- NOTE | 2019-02-18 23:05 | EDM.PDOC ---
ED HPI GENERAL MEDICAL PROBLEM - General Chief Complaint: Fever Stated Complaint: ILLSNESS Time Seen by Provider: 02/18/19 21:51 Source of Information: Reports: Patient, Family, RN Notes Reviewed History Limitations: Reports: No Limitations - History of Present Illness INITIAL COMMENTS - FREE TEXT/NARRATIVE: 78-year-old female presents emergency department today with complaint of fever and weakness, she has a recent history of hospitalization ICU for 2 weeks intubation rehabilitation stay. Was recently discharged from rehabilitation. Reason for hospitalization last time with sepsis this particular event that she states she started feeling poorly this morning progressively gotten worse does have urinary urgency, fever started today feels more short of breath than usual. middle back Pain Score (Numeric/FACES): 3 - Related Data Allergies Allergy/AdvReac Type Severity Reaction Status Date / Time acetaminophen [From Vicodin] Allergy Intermediate GI Verified 02/18/19 22:20 INTOLERANCE codeine Allergy Intermediate GI UPSET Verified 02/18/19 22:20 doxycycline Allergy Intermediate GI Verified 02/18/19 22:20 INTOLERANCE hydrocodone bitartrate Allergy Intermediate GI Verified 02/18/19 22:20 [From Vicodin] INTOLERANCE indomethacin Allergy Diarrhea Verified 02/18/19 22:20 Home Meds: Home Meds Metoprolol Tartrate 50 mg PO BID 06/07/13 [History] atorvaSTATin [Lipitor] 10 mg PO BEDTIME 06/07/13 [History] MV,Ca,Min/Iron Fum/FA/Vit K [Multi For Her Tablet] 1 each PO DAILY 06/08/13 [ History] Levothyroxine [Synthroid] 88 mcg PO ACBREAKFAST 04/25/17 [History] Allopurinol [Zyloprim] 200 mg PO DAILY 10/07/18 [History] Aspirin [Ecotrin EC] 81 mg PO DAILY 10/07/18 [History] Cholestyramine/Sucrose [Cholestyramine Packet] 4 gm PO DAILY 10/07/18 [History] Dextran 70/Hypromellose [Artificial Tears] 1 drp OP DAILY 10/07/18 [History] Albuterol [Ventolin HFA] 2 puff IH Q4HR 12/18/18 [History] Amoxicillin 2,000 mg PO ASDIRECTED 02/18/19 [History] Ferrous Sulfate 325 mg PO DAILY 02/18/19 [History] Furosemide 20 mg PO DAILY 02/18/19 [History] Past Medical History HEENT History: Reports: Cataract Cardiovascular History: Reports: High Cholesterol, Hypertension, Pacemaker Respiratory History: Reports: SOB Other Respiratory History: WALKING DISTANCE Gastrointestinal History: Reports: Cholelithiasis, Chronic Diarrhea, Hemorrhoids , Other (See Below) Other Gastrointestinal History: DIARRHEA Genitourinary History: Reports: Other (See Below) Other Genitourinary History: pt. to see a urologist 05/2017. pt. 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: , Prolapsed Uterus Musculoskeletal History: Reports: Arthritis, Gout, Osteoarthritis, Osteoporosis Endocrine/Metabolic History: Reports: Diabetes, Type II, Hypoparathyroidism, Other (See Below) Other Endocrine/Metabolic History: boaderline/pre-diabetic Hematologic History: Reports: Anemia, Blood Transfusion(s) Dermatologic History: Reports: Cellulitis - Infectious Disease History Infectious Disease History: Reports: Chicken Pox, Measles, Meningitis, Mumps - Past Surgical History HEENT Surgical History: Reports: Cataract Surgery, Oral Surgery GI Surgical History: Reports: Appendectomy, Cholecystectomy, Colonoscopy, Hernia , Abdominal Other GI Surgeries/Procedures: HIATAL HERNIA Female Surgical History: Reports: D&C Musculoskeletal Surgical History: Reports: Knee Replacement Other Musculoskeletal Surgeries/Procedures:: BOTH KNEES Dermatological Surgical History: Reports: Other (See Below) Social & Family History - Family History Family Medical History: Noncontributory - Tobacco Use Smoking Status *Q: Never Smoker - Caffeine Use Caffeine Use: Reports: Coffee - Recreational Drug Use Recreational Drug Use: No ED ROS GENERAL - Review of Systems Review Of Systems: See Below Constitutional: Reports: Fever, Chills, Weakness, Fatigue HEENT: Reports: No Symptoms Respiratory: Reports: Shortness of Breath Cardiovascular: Reports: No Symptoms GI/Abdominal: Reports: Nausea : Reports: Urgency Musculoskeletal: Reports: Muscle Pain Skin: Reports: No Symptoms Neurological: Reports: Weakness ED EXAM, SEPSIS - Physical Exam Exam: See Below Text/Narrative:: General: Female, not in any distress, alert and oriented x3 HEENT: head is atraumatic normocephalic, eyes pupils equal round reactive to light, sclera clear no conjunctivitis appreciated. Ears tympanic membranes clear and esteban landmarks and light reflex are present bilaterally canals are clear. Nose no septal deviation, nares are clear, no blood present. Mouth mucosa is moist and pink no erythema or exudate noted in soft palate, tongue is midline uvula is midline, dentition is intact. Neck: Supple no thyromegaly no tracheal deviation. Nodes: Cervical nodes subclavicular nodes nontender no palpable lymphadenopathy noted. Lungs: clear to auscultation bilaterally with symmetrical respirations, no adventitious noise appreciated. CV: Regular rate and rhythm S1 and S2 appreciated no murmurs rubs or gallops noted. Abdomen: Soft, nontender, no palpable masses or organomegaly appreciated, no distention no guarding bowel sounds are present, Neuro: GCS 15 Skin: Warm and dry, intact Extremities: No lower extremity edema appreciated, Course - Vital Signs Last Recorded V/S: Last Vital Signs Temp 98.2 F 02/19/19 01:00 Pulse 79 02/19/19 01:00 Resp 28 H 02/19/19 01:00 BP 121/52 L 02/19/19 01:00 Pulse Ox 94 L 02/19/19 01:00 - Orders/Labs/Meds Orders: Active Orders 24 hr Category Date Time Status Vital Signs [RC] Q1H Care 02/18/19 22:52 Active CULTURE BLOOD [BC] Urgent Lab 02/18/19 23:40 Received CULTURE BLOOD [BC] Urgent Lab 02/18/19 23:45 Received D-DIMER QUANTITATIVE [COAG] Urgent Lab 02/19/19 01:50 Ordered Lactated Ringers [Ringers, Lactated] 1,000 ml Med 02/18/19 23:00 Active IV ASDIRECTED Blood Culture x2 Reflex Set [OM.PC] Urgent Oth 02/18/19 22:52 Ordered Medication Orders Lactated Ringer's (Ringers, Lactated) 1,000 mls @ 999 mls/hr IV ASDIRECTED GERARDO Last Admin: 02/18/19 23:43 Dose: 999 mls/hr Labs: Laboratory Tests 02/18/19 02/18/19 02/18/19 Range/Units 23:40 23:40 23:40 WBC 21.5 H (4.5-11.0) K/uL RBC 3.44 (3.30-5.50) M/uL Hgb 10.4 L D (12.0-15.0) g/dL Hct 34.0 L (36.0-48.0) % MCV 99 H (80-98) fL MCH 30 (27-31) pg MCHC 31 L (32-36) % Plt Count 181 (150-400) K/uL Neut % (Auto) 90 H (36-66) % Lymph % (Auto) 6 L (24-44) % [place] % (Auto) 3 (2-6) % Eos % (Auto) 0 L (2-4) % Baso % (Auto) 0 (0-1) % Sodium 137 L (140-148) mmol/L Potassium 4.4 (3.6-5.2) mmol/L Chloride 102 (100-108) mmol/L Carbon Dioxide 26 (21-32) mmol/L Anion Gap 13.4 (5.0-14.0) mmol/L BUN 33 H (7-18) mg/dL Creatinine 1.4 H (0.6-1.0) mg/dL Est Cr Clr Drug Dosing 24.17 mL/min Estimated GFR (MDRD) 36 L (>60) Glucose 169 H (74-106) mg/dL Lactic Acid 1.6 (0.4-2.0) mmol/L Calcium 9.7 (8.5-10.1) mg/dL Total Bilirubin 0.6 (0.2-1.0) mg/dL AST 17 (15-37) U/L ALT 16 (12-78) U/L Alkaline Phosphatase 76 (46-116) U/L Troponin I (0.000-0.056) ng/mL C-Reactive Protein 6.60 H (0.0-0.3) mg/dL NT-Pro-B Natriuret Pep (5-450) pg/mL Total Protein 6.6 (6.4-8.2) g/dL Albumin 2.8 L (3.4-5.0) g/dL Globulin 3.8 H (2.3-3.5) g/dL Albumin/Globulin Ratio 0.7 L (1.2-2.2) Procalcitonin ng/mL Urine Color Urine Appearance Urine pH (4.5-8.0) Ur Specific [place] (1.008-1.030) Urine Protein (NEGATIVE) mg/dL Urine Glucose (UA) (NEGATIVE) mg/dL Urine Ketones (NEGATIVE) mg/dL Urine Occult Blood (NEGATIVE) Urine Nitrite (NEGATIVE) Urine Bilirubin (NEGATIVE) Urine Urobilinogen (NORMAL) mg/dL Ur Leukocyte Esterase (NEGATIVE) Urine RBC (0-5) Urine WBC (0-5) Ur Epithelial Cells Amorphous Sediment Urine Bacteria Urine Mucus 02/18/19 02/18/19 02/19/19 Range/Units 23:40 23:40 00:52 WBC (4.5-11.0) K/uL RBC (3.30-5.50) M/uL Hgb (12.0-15.0) g/dL Hct (36.0-48.0) % MCV (80-98) fL MCH (27-31) pg MCHC (32-36) % Plt Count (150-400) K/uL Neut % (Auto) (36-66) % Lymph % (Auto) (24-44) % [place] % (Auto) (2-6) % Eos % (Auto) (2-4) % Baso % (Auto) (0-1) % Sodium (140-148) mmol/L Potassium (3.6-5.2) mmol/L Chloride (100-108) mmol/L Carbon Dioxide (21-32) mmol/L Anion Gap (5.0-14.0) mmol/L BUN (7-18) mg/dL Creatinine (0.6-1.0) mg/dL Est Cr Clr Drug Dosing mL/min Estimated GFR (MDRD) (>60) Glucose (74-106) mg/dL Lactic Acid (0.4-2.0) mmol/L Calcium (8.5-10.1) mg/dL Total Bilirubin (0.2-1.0) mg/dL AST (15-37) U/L ALT (12-78) U/L Alkaline Phosphatase (46-116) U/L Troponin I < 0.017 (0.000-0.056) ng/mL C-Reactive Protein (0.0-0.3) mg/dL NT-Pro-B Natriuret Pep 433 (5-450) pg/mL Total Protein (6.4-8.2) g/dL Albumin (3.4-5.0) g/dL Globulin (2.3-3.5) g/dL Albumin/Globulin Ratio (1.2-2.2) Procalcitonin 0.15 ng/mL Urine Color Yellow Urine Appearance Slightly cloudy Urine pH 5.0 (4.5-8.0) Ur Specific [place] 1.015 (1.008-1.030) Urine Protein 30 H (NEGATIVE) mg/dL Urine Glucose (UA) Normal (NEGATIVE) mg/dL Urine Ketones Negative (NEGATIVE) mg/dL Urine Occult Blood Negative (NEGATIVE) Urine Nitrite Negative (NEGATIVE) Urine Bilirubin Negative (NEGATIVE) Urine Urobilinogen Normal (NORMAL) mg/dL Ur Leukocyte Esterase Small (NEGATIVE) Urine RBC 0-5 (0-5) Urine WBC 0-5 (0-5) Ur Epithelial Cells Many Amorphous Sediment Not seen Urine Bacteria Few Urine Mucus Not seen Meds: Medications Generic Name Dose Route Start Last Admin Trade Name Freq PRN Reason Stop Dose Admin Lactated Ringer's 1,000 mls @ 999 mls/hr 02/18/19 23:00 02/18/19 23:43 Ringers, Lactated IV 999 mls/hr ASDIRECTED GERARDO Administration Discontinued Medications Generic Name Dose Route Start Last Admin Trade Name Freq PRN Reason Stop Dose Admin Acetaminophen 650 mg 02/18/19 22:54 02/18/19 23:09 Tylenol PO 02/18/19 22:55 650 mg NOW ONE Administration Departure - Departure Time of Disposition: 01:58 Disposition: Refer to Observation Condition: Fair Clinical Impression: Weakness - Discharge Information Referrals: Wilton Toure NP [Primary Care Provider] - Forms: ED Department Discharge - My Orders Last 24 Hours: My Active Orders 02/18/19 22:52 Vital Signs [RC] Q1H Blood Culture x2 Reflex Set [OM.PC] Urgent 02/18/19 23:00 Lactated Ringers [Ringers, Lactated] 1,000 ml IV ASDIRECTED 02/18/19 23:40 CULTURE BLOOD [BC] Urgent 02/18/19 23:45 CULTURE BLOOD [BC] Urgent 02/19/19 01:50 D-DIMER QUANTITATIVE [COAG] Urgent - Assessment/Plan Last 24 Hours: My Active Orders 02/18/19 22:52 Vital Signs [RC] Q1H Blood Culture x2 Reflex Set [OM.PC] Urgent 02/18/19 23:00 Lactated Ringers [Ringers, Lactated] 1,000 ml IV ASDIRECTED 02/18/19 23:40 CULTURE BLOOD [BC] Urgent 02/18/19 23:45 CULTURE BLOOD [BC] Urgent 02/19/19 01:50 D-DIMER QUANTITATIVE [COAG] Urgent Plan: Assessment Acuity = acute Site and laterality = weakness Etiology = unclear etiology Manifestations = fever, cough Location of injury = Home Lab values = WBC elevated 21.5 consistent leukocytosis hemoglobin low at 10.4 consistent Macker chromic anemia pending elevated 1.4 consistent with chronic renal failure stage G IIIB, troponin is negative, CRP elevated 6.6, lactic acid normal 1.6 BNP elevated 433 normal limits urinalysis unremarkable chest x-ray also unremarkable Plan Called discussed case with Angelique Schneider adds 145 great come and evaluate patient emergency department for admission blood cultures have been drawn, is currently being evaluated for possibility of sarcoidosis This note was dictated using [employer] voice recognition software please call with any questions on syntax or grammar.
--- NOTE | 2019-02-18 23:59 | CRLCR ---
INDICATION: Fever COMPARISON: 01/13/2019 FINDINGS: PA and lateral views of the chest were obtained. There continues to be moderate elevation of the right hemidiaphragm consistent with eventration. There is no change in mild elevation of the left hemidiaphragm consistent with eventration. The lungs are otherwise clear, despite the bilateral diaphragmatic eventration The heart remains mildly enlarged. Again seen is a right sided pacemaker with leads entering the right subclavian vein and terminating in the right atrium and ventricle. The mediastinum is otherwise normal in appearance. The osseous structures are normal in appearance for the patient`s age. IMPRESSION: No active disease seen in the chest. 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 The heart remains mildly enlarged. Dictated by Ayan Del Rio MD @ Feb 18 2019 11:55PM Signed by Dr. Ayan Del Rio @ Feb 18 2019 11:57PM
[2019-02-19] MEDS ORDERED: Docusate Sodium 100 MG Cap PO PRN (03:07)
[2019-02-19] MEDS ORDERED: Ondansetron 4 MG Tab.DIS PO PRN (03:07)
[2019-02-19] MEDS ORDERED: Albuterol 0.083% 2.5 MG/3 ML Neb Soln NEB PRN (03:07)
[2019-02-19] MEDS ORDERED: Azithromycin 500 MG in Sodium Chloride 0.9% 250 ML IV SCH (03:07)
[2019-02-19] MEDS ORDERED: Bisacodyl 5 MG Tab PO PRN (03:07)
[2019-02-19] MEDS ORDERED: Albuterol/Ipratropium 3.0-0.5 MG/3 ML Neb Soln NEB PRN (03:07)
[2019-02-19] MEDS ORDERED: LORazepam 2 MG/ML SDV IV PRN ×2 (03:07→10:39)
--- NOTE | 2019-02-19 03:08 | PCM.HP ---
H&P History of Present Illness - General Date of Service: 02/19/19 Admit Problem/Dx: Admission Diagnosis/Problem Admission Diagnosis/Problem Weakness Source of Information: Patient, Family (Son and Daughter in Law give history of present illness.) History Limitations: Reports: No Limitations - History of Present Illness Initial Comments - Free Text/Narative: 8-year-old female presents emergency department today with complaint of fever and weakness, she has a recent history of hospitalization ICU for 2 weeks intubation rehabilitation stay. Was recently discharged from rehabilitation. Reason for hospitalization last time with sepsis this particular event that she states she started feeling poorly this morning progressively gotten worse does have urinary urgency, fever started today feels more short of breath than usual. middle back Onset of Symptoms: Reports: Today Duration of Symptoms: Reports: Hour(s):, Getting Worse Location: Reports: Chest (upper back pain, cough), Generalized (bodyache and fever) Quality: Reports: Ache Severity: Moderate Improves with: Reports: Rest Worsens with: Reports: Movement (weakness) Context: Reports: Other (recent hospitalization) Associated Symptoms: Reports: Cough, Fever/Chills, Loss of Appetite, Nausea/ Vomiting, Weakness middle back Pain Score (Numeric/FACES): 3 - Related Data Allergies/Adverse Reactions: Allergies Allergy/AdvReac Type Severity Reaction Status Date / Time acetaminophen [From Vicodin] Allergy Intermediate GI Verified 02/18/19 22:20 INTOLERANCE codeine Allergy Intermediate GI UPSET Verified 02/18/19 22:20 doxycycline Allergy Intermediate GI Verified 02/18/19 22:20 INTOLERANCE hydrocodone bitartrate Allergy Intermediate GI Verified 02/18/19 22:20 [From Vicodin] INTOLERANCE indomethacin Allergy Diarrhea Verified 02/18/19 22:20 Home Medications: Home Meds Metoprolol Tartrate 50 mg PO BID 06/07/13 [History] atorvaSTATin [Lipitor] 10 mg PO BEDTIME 06/07/13 [History] MV,Ca,Min/Iron Fum/FA/Vit K [Multi For Her Tablet] 1 each PO DAILY 06/08/13 [ History] Levothyroxine [Synthroid] 88 mcg PO ACBREAKFAST 04/25/17 [History] Allopurinol [Zyloprim] 200 mg PO DAILY 10/07/18 [History] Aspirin [Ecotrin EC] 81 mg PO DAILY 10/07/18 [History] Cholestyramine/Sucrose [Cholestyramine Packet] 4 gm PO DAILY 10/07/18 [History] Dextran 70/Hypromellose [Artificial Tears] 1 drp OP DAILY 10/07/18 [History] Albuterol [Ventolin HFA] 2 puff IH Q4HR 12/18/18 [History] Amoxicillin 2,000 mg PO ASDIRECTED 02/18/19 [History] Ferrous Sulfate 325 mg PO DAILY 02/18/19 [History] Furosemide 20 mg PO DAILY 02/18/19 [History] Past Medical History HEENT History: Reports: Cataract Cardiovascular History: Reports: High Cholesterol, Hypertension, Pacemaker Respiratory History: Reports: SOB Other Respiratory History: WALKING DISTANCE Gastrointestinal History: Reports: Cholelithiasis, Chronic Diarrhea, Hemorrhoids , Other (See Below) Other Gastrointestinal History: DIARRHEA Genitourinary History: Reports: Other (See Below) Other Genitourinary History: pt. to see a urologist 05/2017. pt. has a tipped uterus, has difficulty emptying bladder RESISTOR WINDER History: Reports: , Prolapsed Uterus Musculoskeletal History: Reports: Arthritis, Gout, Osteoarthritis, Osteoporosis Endocrine/Metabolic History: Reports: Diabetes, Type II, Hypoparathyroidism, Other (See Below) Other Endocrine/Metabolic History: boaderline/pre-diabetic Hematologic History: Reports: Anemia, Blood Transfusion(s) Dermatologic History: Reports: Cellulitis - Infectious Disease History Infectious Disease History: Reports: Chicken Pox, Measles, Meningitis, Mumps - Past Surgical History HEENT Surgical History: Reports: Cataract Surgery, Oral Surgery GI Surgical History: Reports: Appendectomy, Cholecystectomy, Colonoscopy, Hernia , Abdominal Other GI Surgeries/Procedures: HIATAL HERNIA Female Surgical History: Reports: D&C Musculoskeletal Surgical History: Reports: Knee Replacement Other Musculoskeletal Surgeries/Procedures:: BOTH KNEES Dermatological Surgical History: Reports: Other (See Below) Social & Family History - Family History Family Medical History: Noncontributory - Tobacco Use Smoking Status *Q: Never Smoker - Caffeine Use Caffeine Use: Reports: Coffee - Recreational Drug Use Recreational Drug Use: No H&P Review of Systems - Review of Systems: Review Of Systems: See Below General: Reports: Fever, Chills, Malaise, Weakness, Decreased Appetite HEENT: Reports: Glasses Pulmonary: Reports: Shortness of Breath, Wheezing (reports wheezing prior to coming to hospital. resolved with cough), Cough, Sputum (white) Cardiovascular: Reports: Dyspnea on Exertion Gastrointestinal: Reports: Diarrhea (once), Decreased Appetite, Nausea Genitourinary: Reports: No Symptoms Musculoskeletal: Reports: Back Pain (upper back pain) Skin: Reports: No Symptoms Psychiatric: Reports: No Symptoms Neurological: Reports: No Symptoms Hematologic/Lymphatic: Reports: No Symptoms Immunologic: Reports: No Symptoms Exam - Exam Exam: See Below - Vital Signs Vital Signs: Last Vital Signs Temp 36.8 C 02/19/19 01:00 Pulse 71 02/19/19 02:00 Resp 29 H 02/19/19 02:00 BP 118/50 L 02/19/19 02:00 Pulse Ox 93 L 02/19/19 02:00 Weight: 72.121 kg - Exam General: Alert, Oriented, Cooperative, Other (neat and well groomed, appears younger than stated age) HEENT: PERRLA, Conjunctiva Clear, EACs Clear, EOMI, Hearing Intact, Mucosa Moist & [place], Nares Patent, Normal Nasal Septum, Glasses Neck: Supple, Trachea Midline Lungs: Clear to Auscultation, Normal Respiratory Effort Cardiovascular: Regular Rate, Regular Rhythm, Normal S1, Normal S2 GI/Abdominal Exam: Normal Bowel Sounds, Soft, Non-Tender, No Distention (Female) Exam: Deferred Rectal (Female) Exam: Deferred Back Exam: Normal Inspection, Full Range of Motion Extremities: Normal Inspection, Normal Range of Motion, Non-Tender, No Pedal Edema, Normal Capillary Refill Skin: Warm, Dry, Intact Neurological: Cranial Nerves Intact, Reflexes Equal Bilateral Neuro Extensive - Mental Status: Alert, Oriented x3, Normal Mood/Affect, Normal Cognition Psychiatric: Alert, Normal Affect, Normal Mood - Patient Data Lab Results Last 24 hrs: Laboratory Results - last 24 hr 02/18/19 02/18/19 02/18/19 Range/Units 23:40 23:40 23:40 WBC 21.5 H (4.5-11.0) K/uL RBC 3.44 (3.30-5.50) M/uL Hgb 10.4 L D (12.0-15.0) g/dL Hct 34.0 L (36.0-48.0) % MCV 99 H (80-98) fL MCH 30 (27-31) pg MCHC 31 L (32-36) % Plt Count 181 (150-400) K/uL Neut % (Auto) 90 H (36-66) % Lymph % (Auto) 6 L (24-44) % [place] % (Auto) 3 (2-6) % Eos % (Auto) 0 L (2-4) % Baso % (Auto) 0 (0-1) % D-Dimer, Quantitative (0.0-400.0) ng/mL Sodium 137 L (140-148) mmol/L Potassium 4.4 (3.6-5.2) mmol/L Chloride 102 (100-108) mmol/L Carbon Dioxide 26 (21-32) mmol/L Anion Gap 13.4 (5.0-14.0) mmol/L BUN 33 H (7-18) mg/dL Creatinine 1.4 H (0.6-1.0) mg/dL Est Cr Clr Drug Dosing 24.17 mL/min Estimated GFR (MDRD) 36 L (>60) Glucose 169 H (74-106) mg/dL Lactic Acid 1.6 (0.4-2.0) mmol/L Calcium 9.7 (8.5-10.1) mg/dL Total Bilirubin 0.6 (0.2-1.0) mg/dL AST 17 (15-37) U/L ALT 16 (12-78) U/L Alkaline Phosphatase 76 (46-116) U/L Troponin I (0.000-0.056) ng/mL C-Reactive Protein 6.60 H (0.0-0.3) mg/dL NT-Pro-B Natriuret Pep (5-450) pg/mL Total Protein 6.6 (6.4-8.2) g/dL Albumin 2.8 L (3.4-5.0) g/dL Globulin 3.8 H (2.3-3.5) g/dL Albumin/Globulin Ratio 0.7 L (1.2-2.2) Procalcitonin ng/mL Urine Color Urine Appearance Urine pH (4.5-8.0) Ur Specific [place] (1.008-1.030) Urine Protein (NEGATIVE) mg/dL Urine Glucose (UA) (NEGATIVE) mg/dL Urine Ketones (NEGATIVE) mg/dL Urine Occult Blood (NEGATIVE) Urine Nitrite (NEGATIVE) Urine Bilirubin (NEGATIVE) Urine Urobilinogen (NORMAL) mg/dL Ur Leukocyte Esterase (NEGATIVE) Urine RBC (0-5) Urine WBC (0-5) Ur Epithelial Cells Amorphous Sediment Urine Bacteria Urine Mucus 02/18/19 02/18/19 02/19/19 Range/Units 23:40 23:40 00:52 WBC (4.5-11.0) K/uL RBC (3.30-5.50) M/uL Hgb (12.0-15.0) g/dL Hct (36.0-48.0) % MCV (80-98) fL MCH (27-31) pg MCHC (32-36) % Plt Count (150-400) K/uL Neut % (Auto) (36-66) % Lymph % (Auto) (24-44) % [place] % (Auto) (2-6) % Eos % (Auto) (2-4) % Baso % (Auto) (0-1) % D-Dimer, Quantitative (0.0-400.0) ng/mL Sodium (140-148) mmol/L Potassium (3.6-5.2) mmol/L Chloride (100-108) mmol/L Carbon Dioxide (21-32) mmol/L Anion Gap (5.0-14.0) mmol/L BUN (7-18) mg/dL Creatinine (0.6-1.0) mg/dL Est Cr Clr Drug Dosing mL/min Estimated GFR (MDRD) (>60) Glucose (74-106) mg/dL Lactic Acid (0.4-2.0) mmol/L Calcium (8.5-10.1) mg/dL Total Bilirubin (0.2-1.0) mg/dL AST (15-37) U/L ALT (12-78) U/L Alkaline Phosphatase (46-116) U/L Troponin I < 0.017 (0.000-0.056) ng/mL C-Reactive Protein (0.0-0.3) mg/dL NT-Pro-B Natriuret Pep 433 (5-450) pg/mL Total Protein (6.4-8.2) g/dL Albumin (3.4-5.0) g/dL Globulin (2.3-3.5) g/dL Albumin/Globulin Ratio (1.2-2.2) Procalcitonin 0.15 ng/mL Urine Color Yellow Urine Appearance Slightly cloudy Urine pH 5.0 (4.5-8.0) Ur Specific [place] 1.015 (1.008-1.030) Urine Protein 30 H (NEGATIVE) mg/dL Urine Glucose (UA) Normal (NEGATIVE) mg/dL Urine Ketones Negative (NEGATIVE) mg/dL Urine Occult Blood Negative (NEGATIVE) Urine Nitrite Negative (NEGATIVE) Urine Bilirubin Negative (NEGATIVE) Urine Urobilinogen Normal (NORMAL) mg/dL Ur Leukocyte Esterase Small (NEGATIVE) Urine RBC 0-5 (0-5) Urine WBC 0-5 (0-5) Ur Epithelial Cells Many Amorphous Sediment Not seen Urine Bacteria Few Urine Mucus Not seen 02/19/19 Range/Units 01:50 WBC (4.5-11.0) K/uL RBC (3.30-5.50) M/uL Hgb (12.0-15.0) g/dL Hct (36.0-48.0) % MCV (80-98) fL MCH (27-31) pg MCHC (32-36) % Plt Count (150-400) K/uL Neut % (Auto) (36-66) % Lymph % (Auto) (24-44) % [place] % (Auto) (2-6) % Eos % (Auto) (2-4) % Baso % (Auto) (0-1) % D-Dimer, Quantitative 826 H (0.0-400.0) ng/mL Sodium (140-148) mmol/L Potassium (3.6-5.2) mmol/L Chloride (100-108) mmol/L Carbon Dioxide (21-32) mmol/L Anion Gap (5.0-14.0) mmol/L BUN (7-18) mg/dL Creatinine (0.6-1.0) mg/dL Est Cr Clr Drug Dosing mL/min Estimated GFR (MDRD) (>60) Glucose (74-106) mg/dL Lactic Acid (0.4-2.0) mmol/L Calcium (8.5-10.1) mg/dL Total Bilirubin (0.2-1.0) mg/dL AST (15-37) U/L ALT (12-78) U/L Alkaline Phosphatase (46-116) U/L Troponin I (0.000-0.056) ng/mL C-Reactive Protein (0.0-0.3) mg/dL NT-Pro-B Natriuret Pep (5-450) pg/mL Total Protein (6.4-8.2) g/dL Albumin (3.4-5.0) g/dL Globulin (2.3-3.5) g/dL Albumin/Globulin Ratio (1.2-2.2) Procalcitonin ng/mL Urine Color Urine Appearance Urine pH (4.5-8.0) Ur Specific [place] (1.008-1.030) Urine Protein (NEGATIVE) mg/dL Urine Glucose (UA) (NEGATIVE) mg/dL Urine Ketones (NEGATIVE) mg/dL Urine Occult Blood (NEGATIVE) Urine Nitrite (NEGATIVE) Urine Bilirubin (NEGATIVE) Urine Urobilinogen (NORMAL) mg/dL Ur Leukocyte Esterase (NEGATIVE) Urine RBC (0-5) Urine WBC (0-5) Ur Epithelial Cells Amorphous Sediment Urine Bacteria Urine Mucus Result Diagrams: 02/18/19 23:40 02/18/19 23:40 - Problem List (1) Fever SNOMED Code(s): 860639516 ICD Code: R50.9 - FEVER, UNSPECIFIED Status: Acute Priority: High Current Visit: Yes Qualifiers: Encounter type: initial encounter (2) Weakness SNOMED Code(s): 81384312 ICD Code: R53.1 - WEAKNESS Status: Acute Priority: High Current Visit: Yes (3) Pacemaker SNOMED Code(s): 549773187 ICD Code: Z95.0 - PRESENCE OF CARDIAC PACEMAKER Status: Acute Priority: Low Current Visit: Yes (4) Diabetes type 2, controlled SNOMED Code(s): 74128233, 796743947 ICD Code: E11.9 - TYPE 2 DIABETES MELLITUS WITHOUT COMPLICATIONS Status: Acute Priority: Low Current Visit: Yes Qualifiers: Diabetes mellitus retirement insulin use: without retirement use Diabetes mellitus complication status: without complication Qualified Code(s): E11.9 - Type 2 diabetes mellitus without complications Problem List Initiated/Reviewed/Updated: Yes Orders Last 24hrs: Active Orders 24 hr Category Date Time Status Patient Status Manage Transfer [TRANSFER] Routine ADT 02/19/19 02:45 Active Vital Signs [RC] Q1H Care 02/18/19 22:52 Active CULTURE BLOOD [BC] Urgent Lab 02/18/19 23:40 Received CULTURE BLOOD [BC] Urgent Lab 02/18/19 23:45 Received Lactated Ringers [Ringers, Lactated] 1,000 ml Med 02/18/19 23:00 Active IV ASDIRECTED Blood Culture x2 Reflex Set [OM.PC] Urgent Oth 02/18/19 22:52 Ordered Resuscitation Status Routine Resus Stat 02/19/19 02:46 Ordered Medication Orders Lactated Ringer's (Ringers, Lactated) 1,000 mls @ 999 mls/hr IV ASDIRECTED GERARDO Last Admin: 02/18/19 23:43 Dose: 999 mls/hr Assessment/Plan Comment:: Assessment/Plan Comment: This is a 78 year old female admitted to 2nd Floor from Emergency Dept. , She reports a 1 day history of shortness of breath, coughing white sputum, body ache and upper back pain. 78-year-old female presents emergency department today with complaint of fever and weakness, she has a recent history of hospitalization ICU for 2 weeks with intubation, rehabilitation stay. Was recently discharged from rehabilitation. Reason for hospitalization last time with sepsis this particular event that she states she started feeling poorly this morning progressively gotten worse does have urinary urgency, fever started today feels more short of breath than usual. Lab values = WBC elevated 21.5 consistent leukocytosis hemoglobin low at 10.4 consistent Macker chromic anemia pending elevated 1.4 consistent with chronic renal failure stage G IIIB, troponin is negative, CRP elevated 6.6, lactic acid normal 1.6 BNP elevated 433 normal limits urinalysis unremarkable chest x-ray also unremarkable Fever, weakness, cough -IV antibiotic; IV Rocephin 1 gram daily IV Zithromax 500mg daily -IV fluids NS at 100ml/hr -Duo-neb and albuterol neb as needed -Tylenol 650 mg po every 4 hr prn fever -oxygen therapy to keep sats> 93% Diabetes type 2 -diet controlled -blood glucose monitoring 4 times daily MAINTENANCE ISSUES -DVT prophylaxis; Lovenox 30 mg subcut -GI prophylaxis; Protonix 40 mg IV daily -Ricketts catheter; not indicated -Nutrition; consistent carb diet -Nicotine dependence; not required -consult to Spiritual for daily prayers CODE STATUS-FULL CODE ADMISSION STATUS-patient will be admitted to inpatient status, expect at least a 2 night hospital stay for evaluation and management of problems as outlined above. At the time of this admission I do not reasonably expected evaluation and management of this problem will require more than a 96 hour hospital stay. DISPOSITION-anticipate discharge to home after the hospital stay. PRIMARY CARE PROVIDER- MARIA D Santiago Hospitalist: Dr. Quintero
[2019-02-19] MEDS: Sodium Chloride 0.9% 1,000 ML IV SCH ×2 (04:18→15:26)
[2019-02-19] MEDS: cefTRIAXone 1 GM in Sodium Chloride 0.9% 50 ML IV SCH (04:19)
[2019-02-19] MEDS: Pantoprazole 40 MG Tab.CR PO SCH (08:07)
[2019-02-19] MEDS: Levothyroxine 88 MCG Tab PO SCH (08:07)
[2019-02-19] MEDS ORDERED: Pantoprazole 40 MG Vial IVPUSH SCH (09:00)
[2019-02-19] MEDS ORDERED: Enoxaparin 30 MG/0.3 ML Syringe SUBCUT SCH (09:00)
[2019-02-19] MEDS ORDERED: Hypromellose 0.4% Ophth Soln 15 ML Bottle EYEBOTH SCH (09:00)
[2019-02-19] MEDS: Furosemide 20 MG Tab PO SCH (09:01)
[2019-02-19] MEDS: Allopurinol 100 MG Tab PO SCH (09:01)
[2019-02-19] MEDS: Hypromellose 0.4% Ophth Soln 15 ML Bottle EYEBOTH SCH (09:01)
[2019-02-19] MEDS: Cholestyramine/Sucrose Powder 4 GM Packet PO SCH ×3 (09:01→11:44)
[2019-02-19] MEDS ORDERED: Loperamide 2 MG Cap PO PRN (10:40)
--- NOTE | 2019-02-19 11:20 | PCM.PN ---
- General Info Date of Service: 02/19/19 Subjective Update: Ms. Kaur is a 78-year-old woman who was admitted through the emergency department earlier this morning. She has recent significant medical problems including severe pneumonia with sepsis and respiratory failure. She was in the hospital for prolonged period of time in [place], then transition to inpatient rehabilitation, [facility], and finally home. She had been slowly improving strength and doing fairly well until last night when she developed onset of fever or chills with shortness of breath. She was brought into the emergency department for evaluation. White blood cell count was elevated at 21,000. Urine was clear showing no evidence of infection and chest x-ray showed no obvious infiltrates. Because of symptoms of shortness of breath associated with the fever was felt most likely that she had developed pneumonia with on scene infiltrate on chest x-ray. Blood cultures were obtained and she was started on IV antibiotic therapy with ceftriaxone and azithromycin. Functional Status: Reports: Tolerating Diet, Ambulating, Urinating - Review of Systems General: Reports: Fever, Weakness, Chills Pulmonary: Reports: Shortness of Breath. Denies: Pleuritic Chest Pain, Cough, Sputum, Hemoptysis, Wheezing Cardiovascular: Reports: Dyspnea on Exertion. Denies: Chest Pain, Palpitations , Orthopnea, PND, Edema, Lightheadedness Gastrointestinal: Reports: No Symptoms - Patient Data Vitals - Most Recent: Last Vital Signs Temp 95.3 F L 02/19/19 08:03 Pulse 66 02/19/19 08:03 Resp 16 02/19/19 08:03 BP 107/36 L 02/19/19 08:03 Pulse Ox 99 02/19/19 08:03 Weight - Most Recent: 161 lb 4.8 oz I&O - Last 24 Hours: Intake & Output 02/18/19 02/19/19 02/19/19 22:59 06:59 14:59 Intake Total 300 720 Output Total 200 Balance 300 520 Lab Results Last 24 Hours: Laboratory Results - last 24 hr 02/18/19 02/18/19 02/18/19 Range/Units 23:40 23:40 23:40 WBC 21.5 H (4.5-11.0) K/uL RBC 3.44 (3.30-5.50) M/uL Hgb 10.4 L D (12.0-15.0) g/dL Hct 34.0 L (36.0-48.0) % MCV 99 H (80-98) fL MCH 30 (27-31) pg MCHC 31 L (32-36) % Plt Count 181 (150-400) K/uL Neut % (Auto) 90 H (36-66) % Lymph % (Auto) 6 L (24-44) % Mcleod % (Auto) 3 (2-6) % Eos % (Auto) 0 L (2-4) % Baso % (Auto) 0 (0-1) % D-Dimer, Quantitative (0.0-400.0) ng/mL Sodium 137 L (140-148) mmol/L Potassium 4.4 (3.6-5.2) mmol/L Chloride 102 (100-108) mmol/L Carbon Dioxide 26 (21-32) mmol/L Anion Gap 13.4 (5.0-14.0) mmol/L BUN 33 H (7-18) mg/dL Creatinine 1.4 H (0.6-1.0) mg/dL Est Cr Clr Drug Dosing 24.17 mL/min Estimated GFR (MDRD) 36 L (>60) Glucose 169 H (74-106) mg/dL Lactic Acid 1.6 (0.4-2.0) mmol/L Calcium 9.7 (8.5-10.1) mg/dL Total Bilirubin 0.6 (0.2-1.0) mg/dL AST 17 (15-37) U/L ALT 16 (12-78) U/L Alkaline Phosphatase 76 (46-116) U/L Troponin I (0.000-0.056) ng/mL C-Reactive Protein 6.60 H (0.0-0.3) mg/dL NT-Pro-B Natriuret Pep (5-450) pg/mL Total Protein 6.6 (6.4-8.2) g/dL Albumin 2.8 L (3.4-5.0) g/dL Globulin 3.8 H (2.3-3.5) g/dL Albumin/Globulin Ratio 0.7 L (1.2-2.2) Procalcitonin ng/mL Urine Color Urine Appearance Urine pH (4.5-8.0) Ur Specific Hazel (1.008-1.030) Urine Protein (NEGATIVE) mg/dL Urine Glucose (UA) (NEGATIVE) mg/dL Urine Ketones (NEGATIVE) mg/dL Urine Occult Blood (NEGATIVE) Urine Nitrite (NEGATIVE) Urine Bilirubin (NEGATIVE) Urine Urobilinogen (NORMAL) mg/dL Ur Leukocyte Esterase (NEGATIVE) Urine RBC (0-5) Urine WBC (0-5) Ur Epithelial Cells Amorphous Sediment Urine Bacteria Urine Mucus 02/18/19 02/18/19 02/19/19 Range/Units 23:40 23:40 00:52 WBC (4.5-11.0) K/uL RBC (3.30-5.50) M/uL Hgb (12.0-15.0) g/dL Hct (36.0-48.0) % MCV (80-98) fL MCH (27-31) pg MCHC (32-36) % Plt Count (150-400) K/uL Neut % (Auto) (36-66) % Lymph % (Auto) (24-44) % Mcleod % (Auto) (2-6) % Eos % (Auto) (2-4) % Baso % (Auto) (0-1) % D-Dimer, Quantitative (0.0-400.0) ng/mL Sodium (140-148) mmol/L Potassium (3.6-5.2) mmol/L Chloride (100-108) mmol/L Carbon Dioxide (21-32) mmol/L Anion Gap (5.0-14.0) mmol/L BUN (7-18) mg/dL Creatinine (0.6-1.0) mg/dL Est Cr Clr Drug Dosing mL/min Estimated GFR (MDRD) (>60) Glucose (74-106) mg/dL Lactic Acid (0.4-2.0) mmol/L Calcium (8.5-10.1) mg/dL Total Bilirubin (0.2-1.0) mg/dL AST (15-37) U/L ALT (12-78) U/L Alkaline Phosphatase (46-116) U/L Troponin I < 0.017 (0.000-0.056) ng/mL C-Reactive Protein (0.0-0.3) mg/dL NT-Pro-B Natriuret Pep 433 (5-450) pg/mL Total Protein (6.4-8.2) g/dL Albumin (3.4-5.0) g/dL Globulin (2.3-3.5) g/dL Albumin/Globulin Ratio (1.2-2.2) Procalcitonin 0.15 ng/mL Urine Color Yellow Urine Appearance Slightly cloudy Urine pH 5.0 (4.5-8.0) Ur Specific Hazel 1.015 (1.008-1.030) Urine Protein 30 H (NEGATIVE) mg/dL Urine Glucose (UA) Normal (NEGATIVE) mg/dL Urine Ketones Negative (NEGATIVE) mg/dL Urine Occult Blood Negative (NEGATIVE) Urine Nitrite Negative (NEGATIVE) Urine Bilirubin Negative (NEGATIVE) Urine Urobilinogen Normal (NORMAL) mg/dL Ur Leukocyte Esterase Small (NEGATIVE) Urine RBC 0-5 (0-5) Urine WBC 0-5 (0-5) Ur Epithelial Cells Many Amorphous Sediment Not seen Urine Bacteria Few Urine Mucus Not seen 02/19/19 Range/Units 01:50 WBC (4.5-11.0) K/uL RBC (3.30-5.50) M/uL Hgb (12.0-15.0) g/dL Hct (36.0-48.0) % MCV (80-98) fL MCH (27-31) pg MCHC (32-36) % Plt Count (150-400) K/uL Neut % (Auto) (36-66) % Lymph % (Auto) (24-44) % Mcleod % (Auto) (2-6) % Eos % (Auto) (2-4) % Baso % (Auto) (0-1) % D-Dimer, Quantitative 826 H (0.0-400.0) ng/mL Sodium (140-148) mmol/L Potassium (3.6-5.2) mmol/L Chloride (100-108) mmol/L Carbon Dioxide (21-32) mmol/L Anion Gap (5.0-14.0) mmol/L BUN (7-18) mg/dL Creatinine (0.6-1.0) mg/dL Est Cr Clr Drug Dosing mL/min Estimated GFR (MDRD) (>60) Glucose (74-106) mg/dL Lactic Acid (0.4-2.0) mmol/L Calcium (8.5-10.1) mg/dL Total Bilirubin (0.2-1.0) mg/dL AST (15-37) U/L ALT (12-78) U/L Alkaline Phosphatase (46-116) U/L Troponin I (0.000-0.056) ng/mL C-Reactive Protein (0.0-0.3) mg/dL NT-Pro-B Natriuret Pep (5-450) pg/mL Total Protein (6.4-8.2) g/dL Albumin (3.4-5.0) g/dL Globulin (2.3-3.5) g/dL Albumin/Globulin Ratio (1.2-2.2) Procalcitonin ng/mL Urine Color Urine Appearance Urine pH (4.5-8.0) Ur Specific Hazel (1.008-1.030) Urine Protein (NEGATIVE) mg/dL Urine Glucose (UA) (NEGATIVE) mg/dL Urine Ketones (NEGATIVE) mg/dL Urine Occult Blood (NEGATIVE) Urine Nitrite (NEGATIVE) Urine Bilirubin (NEGATIVE) Urine Urobilinogen (NORMAL) mg/dL Ur Leukocyte Esterase (NEGATIVE) Urine RBC (0-5) Urine WBC (0-5) Ur Epithelial Cells Amorphous Sediment Urine Bacteria Urine Mucus Med Orders - Current: Current Medications Acetaminophen (Tylenol) 650 mg PO Q4H PRN PRN Reason: Pain (Mild 1-3)/fever Albuterol (Proventil Neb Soln) 2.5 mg NEB Q4H PRN PRN Reason: Shortness Of Breath/wheezing Albuterol/Ipratropium (Duoneb 3.0-0.5 Mg/3 Ml) 3 ml NEB QID PRN PRN Reason: Shortness Of Breath/wheezing Allopurinol (Zyloprim) 200 mg PO DAILY [facility] Last Admin: 02/19/19 09:01 Dose: 200 mg Artificial Tears (Natural Balance Tears) 0 ml EYEBOTH DAILY [facility] Last Admin: 02/19/19 09:01 Dose: 1 drop Bisacodyl (Dulcolax) 5 mg PO DAILY PRN PRN Reason: Constipation Cholestyramine Resin (Cholestyramine Packet) 4 gm PO Q24H [facility] Docusate Sodium (Colace) 100 mg PO BID PRN PRN Reason: Constipation Enoxaparin Sodium (Lovenox) 30 mg SUBCUT DAILY [facility] Last Admin: 06/29/19 09:01 Dose: 30 mg Furosemide (Lasix) 20 mg PO DAILY [facility] Last Admin: 02/19/19 09:01 Dose: 20 mg Azithromycin 500 mg/ Sodium (Chloride) 250 mls @ 250 mls/hr IV DAILY@0400 [facility] Last Admin: 02/19/19 04:54 Dose: 250 mls/hr Ceftriaxone Sodium 1 gm/ (Sodium Chloride) 50 mls @ 100 mls/hr IV DAILY@0600 [facility] Last Admin: 02/19/19 04:19 Dose: 100 mls/hr Sodium Chloride (Normal Saline) 1,000 mls @ 100 mls/hr IV ASDIRECTED [facility] Last Admin: 02/19/19 04:18 Dose: 100 mls/hr Lactobacillus Rhamnosus (Culturelle) 1 cap PO BID [facility] Levothyroxine Sodium (Synthroid) 88 mcg PO ACBREAKFAST [facility] Last Admin: 02/19/19 08:07 Dose: 88 mcg Loperamide HCl (Imodium) 2 mg PO Q4H PRN PRN Reason: Diarrhea Lorazepam (Ativan) 0.5 mg IV Q4H PRN PRN Reason: Nausea/Vomiting Metoprolol Tartrate (Lopressor) 50 mg PO BID [facility] Ondansetron HCl (Zofran Odt) 4 mg PO Q6H PRN PRN Reason: Nausea able to take PO Pantoprazole Sodium (Protonix) 40 mg PO ACBREAKFAST [facility] Last Admin: 02/19/19 08:07 Dose: 40 mg Discontinued Medications Acetaminophen (Tylenol) 650 mg PO NOW ONE Stop: 02/18/19 22:55 Last Admin: 02/18/19 23:09 Dose: 650 mg Cholestyramine Resin (Cholestyramine Packet) 4 gm PO DAILY [facility] Last Admin: 02/19/19 09:08 Dose: Not Given Lactated Ringer's (Ringers, Lactated) 1,000 mls @ 999 mls/hr IV ASDIRECTED [facility] Last Admin: 02/18/19 23:43 Dose: 999 mls/hr Lorazepam (Ativan) 1 mg IV Q6H PRN PRN Reason: Nausea/Vomiting Pantoprazole Sodium (Protonix Iv) 40 mg IVPUSH DAILY [facility] - Exam Quality Assessment: DVT Prophylaxis General: Alert, Oriented, Cooperative, Mild Distress Lungs: Clear to Auscultation, Normal Respiratory Effort Cardiovascular: Regular Rate, Regular Rhythm, No Murmurs GI/Abdominal Exam: Soft, Non-Tender, No Organomegaly, No Distention Extremities: Non-Tender, Pedal Edema (Left leg) Skin: Warm, Dry, Intact - Problem List Review Problem List Initiated/Reviewed/Updated: Yes - My Orders Last 24 Hours: My Active Orders 02/19/19 10:38 Chest 2V [CR] Urgent 02/19/19 10:39 LORazepam [Ativan] 0.5 mg IV Q4H PRN 02/19/19 10:40 CLOSTRIDIUM DIFFICILE BY PCR [RM] Stat Loperamide [Imodium] 2 mg PO Q4H PRN 02/19/19 10:45 Lactobacillus Rhamnosus GG [Culturelle] 1 cap PO BID 02/20/19 05:00 BASIC METABOLIC PANEL,BMP [CHEM] Timed CBC WITH AUTO DIFF [HEME] Timed - Plan Plan:: Assessment/Plan Fever, weakness, cough-recent hospitalization for pneumonia with sepsis and respiratory failure. Unilateral swelling of left lower extremity, unable to proceed with CT angiogram of the chest because of renal insufficiency -IV antibiotic; IV Rocephin 1 gram daily IV levofloxacin -IV fluids NS at 100ml/hr -Duo-neb and albuterol neb as needed -Tylenol 650 mg po every 4 hr prn fever -oxygen therapy to keep sats> 93% -Therapeutic dose of Lovenox 70 mg subcutaneous daily -Venous Doppler study left lower extremity -CT scan angiogram of chest if renal function improves Diabetes type 2 -diet controlled -blood glucose monitoring 4 times daily MAINTENANCE ISSUES -DVT prophylaxis; therapeutic Lovenox should provide adequate DVT prophylaxis -GI prophylaxis; Protonix 40 mg IV daily -Ricketts catheter; not indicated -Nutrition; consistent carb diet -Nicotine dependence; not required CODE STATUS-FULL CODE ADMISSION STATUS-patient will be admitted to inpatient status, expect at least a 2 night hospital stay for evaluation and management of problems as outlined above. At the time of this admission I do not reasonably expected evaluation and management of this problem will require more than a 96 hour hospital stay. DISPOSITION-anticipate discharge to home after the hospital stay. PRIMARY CARE PROVIDER- MARIA D Santiago Hospitalist: Dr. Quintero
[2019-02-19] MEDS: Metoprolol Tartrate 50 MG Tab PO SCH (11:25)
[2019-02-19] MEDS: Lactobacillus Rhamnosus GG (Probiotic) Cap PO SCH ×2 (11:44→21:55)
--- NOTE | 2019-02-19 12:02 | CRLCR ---
INDICATION: Follow up for infiltrate after hydration. COMPARISON: 02/18/2019. FINDINGS: Frontal and lateral views of the chest are reviewed. The study is somewhat limited due to field of view. Again noted is right greater than left eventration of the hemidiaphragms. EKG leads overlie the thorax. Stable dual lead cardiac pacer in place. No airspace consolidation, pneumothorax or effusion. Diffuse vascular calcifications. No acute osseous findings. IMPRESSION: Stable radiographic appearance of the chest. No acute findings. Dictated by Tor Cao MD @ 02/19/2019 12:01:25 PM Dictated by: Tor Cao MD @ 02/19/2019 12:01:49 (Electronically Signed)
[2019-02-19] MEDS ORDERED: Levofloxacin/Dextrose 5%-Water 500 MG in Premix Bag 1 BAG IV SCH (12:30)
[2019-02-19] MEDS ORDERED: Enoxaparin 40 MG/0.4 ML Syringe SUBCUT ONE (12:40)
[2019-02-19] MEDS ORDERED: Levofloxacin/Dextrose 5%-Water 750 MG in Premix Bag 1 BAG IV ONE (13:00)
--- NOTE | 2019-02-19 15:05 | CRLUS ---
INDICATION: Left lower extremity swelling. Recent hospitalization. TECHNIQUE: A compression venous ultrasound exam was performed of the left lower extremity using esteban-scale imaging, color Doppler and spectral Doppler analysis. FINDINGS: Sonographic imaging of the left lower extremity demonstrates normal compressibility and color Doppler venous blood flow within the common femoral vein, deep femoral vein, and the proximal greater saphenous vein. Within the thigh, the femoral vein is patent and compressible. At a lower level, the popliteal and posterior tibial veins also show normal compressibility and color Doppler venous blood flow. Hypoechoic somewhat complex left popliteal fossa nonvascular fluid collection 3 x 2 x 1.5 cm. Limited imaging of the contralateral groin demonstrates a normal spectral waveform and color Doppler venous blood flow within the right common femoral vein. IMPRESSION: Left Ayala cyst potentially with some hemorrhage. No evidence of deep vein thrombosis within the left lower extremity. Dictated by Bret Barker MD @ Feb 19 2019 3:03PM Signed by Dr. Bret Barker @ Feb 19 2019 3:04PM
[2019-02-19] MEDS: Acetaminophen 325 MG Tab PO PRN (21:55)
[2019-02-19] MEDS: Melatonin 3 MG Tab PO PRN (23:51)
[2019-02-20] MEDS: Sodium Chloride 0.9% 1,000 ML IV SCH (01:33)
[2019-02-20] MEDS: cefTRIAXone 1 GM in Sodium Chloride 0.9% 50 ML IV SCH (05:30)
[2019-02-20] MEDS: Pantoprazole 40 MG Tab.CR PO SCH (08:47)
[2019-02-20] MEDS: Levothyroxine 88 MCG Tab PO SCH (08:47)
[2019-02-20] MEDS: Lactobacillus Rhamnosus GG (Probiotic) Cap PO SCH ×2 (08:47→20:34)
[2019-02-20] MEDS: Metoprolol Tartrate 50 MG Tab PO SCH ×2 (08:48→20:34)
[2019-02-20] MEDS: Allopurinol 100 MG Tab PO SCH (08:48)
[2019-02-20] MEDS: Furosemide 20 MG Tab PO SCH (08:48)
[2019-02-20] MEDS: Magnesium Sulfate/Water 2 GM in Premix Bag 1 BAG IV SCH ×3 (08:52→20:41)
[2019-02-20] MEDS: Hypromellose 0.4% Ophth Soln 15 ML Bottle EYEBOTH SCH (08:53)
[2019-02-20] MEDS: Magnesium Oxide 400 MG Tab PO SCH ×2 (08:53→20:34)
[2019-02-20] MEDS ORDERED: Enoxaparin 80 MG/0.8 ML Syringe SUBCUT SCH (09:00)
[2019-02-20] MEDS ORDERED: Iopamidol 755 Mg/ML 100 ML Bottle IV SCH (09:30)
[2019-02-20] MEDS ORDERED: Sodium Chloride 0.9% 10 ML Syringe FLUSH PRN (09:30)
[2019-02-20] MEDS: Cholestyramine/Sucrose Powder 4 GM Packet PO SCH (11:15)
--- NOTE | 2019-02-20 12:08 | CRLCT ---
HISTORY: Fever, hypoxia. TECHNIQUE: Intravenous contrast enhanced CT of the chest. 63 mL of Isovue-300 intravenous contrast administered. COMPARISON: No prior. FINDINGS: There is a pacer device with leads terminating within the right atrium and right ventricle. There is no thoracic aortic aneurysm or dissection. There is non optimal opacification of the pulmonary arterial circulation. This limits evaluation for pulmonary embolism. There is no moderate or large pulmonary embolus. No pericardial effusion. Small nonspecific mediastinal lymph nodes. Mildly enlarged subcarinal lymph node measuring 1.2 cm short axis. - Lung parenchymal assessment mildly limited by respiratory motion. Areas of mild atelectasis or scarring with the lung bases. There is no consolidation suggest pneumonia. No pleural effusion or pneumothorax. No endotracheal or proximal endobronchial mass. - Degenerative changes of the thoracic spine. No acute thoracic fracture. - Heterogeneous appearance of the thyroid likely with subcentimeter right thyroid lobe nodules. - Limited evaluation of the upper abdomen demonstrate changes of prior cholecystectomy. Prominence of the extrahepatic bile duct may relate to postcholecystectomy reservoir effect. There is likely a duodenal diverticulum. IMPRESSION: 1. Assessment for pulmonary embolism limited by non-optimal opacification of the pulmonary arterial circulation. No moderate or large pulmonary embolism. 2. Areas of mild atelectasis or scarring within the lung bases. No consolidation to suggest pneumonia. 3. Increased number of small nonspecific mediastinal lymph nodes. Dictated by Ze Roberts MD @ 02/20/2019 12:06:24 PM Please note that all CT scans at this facility use dose modulation, iterative reconstruction, and/or weight-based dosing when appropriate to reduce radiation dose to as low as reasonably achievable. Dictated by: Ze Roberts MD @ 02/20/2019 12:06:28 (Electronically Signed)
--- NOTE | 2019-02-20 14:45 | PCM.PN ---
- General Info Date of Service: 02/20/19 Subjective Update: Ms. Kaur has been stable since yesterday, good improvement in energy level and appetite. Denies significant respiratory symptoms with no shortness of breath or cough. She has remained afebrile and has been hemodynamically stable. No further episodes of diarrhea thus far during hospitalization. CT scan of the chest with PE protocol shows no evidence of pulmonary emboli, ruling out large and moderate sized pulmonary emboli, unable to rule out small pulmonary emboli. She was noted to have nonspecific mediastinal adenopathy as well as scarring versus atelectasis lower lung velasquez. Functional Status: Reports: Tolerating Diet, Ambulating, Urinating - Review of Systems General: Reports: Weakness. Denies: Fever, Chills Pulmonary: Reports: No Symptoms Cardiovascular: Reports: No Symptoms Gastrointestinal: Reports: No Symptoms - Patient Data Vitals - Most Recent: Last Vital Signs Temp 96.1 F 02/20/19 12:00 Pulse 70 02/20/19 12:00 Resp 18 02/20/19 12:00 BP 140/67 02/20/19 12:00 Pulse Ox 98 02/20/19 12:00 Weight - Most Recent: 161 lb 4.8 oz I&O - Last 24 Hours: Intake & Output 02/19/19 02/20/19 02/20/19 22:59 06:59 14:59 Intake Total 1000 1866 Output Total 1250 800 200 Balance -250 1066 -200 Lab Results Last 24 Hours: Laboratory Results - last 24 hr 02/20/19 02/20/19 Range/Units 05:00 05:00 WBC 7.8 (4.5-11.0) K/uL RBC 2.80 L (3.30-5.50) M/uL Hgb 8.8 L (12.0-15.0) g/dL Hct 28.3 L (36.0-48.0) % MCV 101 H (80-98) fL MCH 31 (27-31) pg MCHC 31 L (32-36) % Plt Count 162 (150-400) K/uL Neut % (Auto) 77 H (36-66) % Lymph % (Auto) 14 L (24-44) % [place] % (Auto) 8 H (2-6) % Eos % (Auto) 1 L (2-4) % Baso % (Auto) 0 (0-1) % Sodium 141 (140-148) mmol/L Potassium 4.1 (3.6-5.2) mmol/L Chloride 107 (100-108) mmol/L Carbon Dioxide 27 (21-32) mmol/L Anion Gap 7.2 (5.0-14.0) mmol/L BUN 33 H (7-18) mg/dL Creatinine 1.3 H (0.6-1.0) mg/dL Est Cr Clr Drug Dosing 26.03 mL/min Estimated GFR (MDRD) 40 L (>60) Glucose 146 H (74-106) mg/dL Calcium 8.8 (8.5-10.1) mg/dL Magnesium 1.3 L (1.8-2.4) mg/dL [place] Results Last 24 Hours: Microbiology 02/18/19 23:45 Aerobic Blood Culture - Preliminary Blood - Arm, Left NO GROWTH AFTER 1 DAY Anaerobic Blood Culture - Preliminary NO GROWTH AFTER 1 DAY 02/18/19 23:40 Aerobic Blood Culture - Preliminary Blood - Venous - Iv Start NO GROWTH AFTER 1 DAY Anaerobic Blood Culture - Preliminary NO GROWTH AFTER 1 DAY Med Orders - Current: Current Medications Acetaminophen (Tylenol) 650 mg PO Q4H PRN PRN Reason: Pain (Mild 1-3)/fever Last Admin: 02/19/19 21:55 Dose: 650 mg Albuterol (Proventil Neb Soln) 2.5 mg NEB Q4H PRN PRN Reason: Shortness Of Breath/wheezing Albuterol/Ipratropium (Duoneb 3.0-0.5 Mg/3 Ml) 3 ml NEB QID PRN PRN Reason: Shortness Of Breath/wheezing Allopurinol (Zyloprim) 200 mg PO DAILY [facility] Last Admin: 02/20/19 08:48 Dose: 200 mg Artificial Tears (Natural Balance Tears) 0 ml EYEBOTH DAILY [facility] Last Admin: 02/20/19 08:53 Dose: 1 drop Bisacodyl (Dulcolax) 5 mg PO DAILY PRN PRN Reason: Constipation Cholestyramine Resin (Cholestyramine Packet) 4 gm PO Q24H [facility] Last Admin: 02/20/19 11:15 Dose: 4 gm Docusate Sodium (Colace) 100 mg PO BID PRN PRN Reason: Constipation Last Admin: 02/20/19 08:52 Dose: 100 mg Enoxaparin Sodium (Lovenox) 30 mg SUBCUT DAILY [facility] Furosemide (Lasix) 20 mg PO DAILY [facility] Last Admin: 02/20/19 08:48 Dose: 20 mg Levofloxacin/Dextrose 500 mg/ (Premix) 100 mls @ 100 mls/hr IV Q48H [facility] Magnesium Sulfate 2 gm/ Premix 50 mls @ 25 mls/hr IV Q6H [facility] Stop: 02/20/19 22:59 Last Admin: 02/20/19 08:52 Dose: 25 mls/hr Iopamidol (Isovue-370 (76%)) 63 ml IV . DIRECTED [facility] Stop: 02/20/19 15:00 Last Admin: 02/20/19 10:50 Dose: 63 ml Lactobacillus Rhamnosus (Culturelle) 1 cap PO BID [facility] Last Admin: 02/20/19 08:47 Dose: 1 cap Levothyroxine Sodium (Synthroid) 88 mcg PO ACBREAKFAST [facility] Last Admin: 02/20/19 08:47 Dose: 88 mcg Loperamide HCl (Imodium) 2 mg PO Q4H PRN PRN Reason: Diarrhea Lorazepam (Ativan) 0.5 mg IV Q4H PRN PRN Reason: Nausea/Vomiting Magnesium Oxide (Magnesium Oxide) 400 mg PO BID [facility] Last Admin: 02/20/19 08:53 Dose: 400 mg Melatonin (Melatonin) 9 mg PO BEDTIME PRN PRN Reason: Insomnia Last Admin: 02/19/19 23:51 Dose: 9 mg Metoprolol Tartrate (Lopressor) 50 mg PO BID [facility] Last Admin: 02/20/19 08:48 Dose: 50 mg Ondansetron HCl (Zofran Odt) 4 mg PO Q6H PRN PRN Reason: Nausea able to take PO Pantoprazole Sodium (Protonix) 40 mg PO ACBREAKFAST [facility] Last Admin: 02/20/19 08:47 Dose: 40 mg Sodium Chloride (Saline Flush) 10 ml FLUSH ONETIME PRN PRN Reason: per radiology protocol Stop: 02/20/19 15:00 Last Admin: 02/20/19 10:51 Dose: 10 ml Discontinued Medications Acetaminophen (Tylenol) 650 mg PO NOW ONE Stop: 02/18/19 22:55 Last Admin: 02/18/19 23:09 Dose: 650 mg Cholestyramine Resin (Cholestyramine Packet) 4 gm PO DAILY [facility] Last Admin: 02/19/19 09:08 Dose: Not Given Enoxaparin Sodium (Lovenox) 30 mg SUBCUT DAILY [facility] Last Admin: 02/19/19 09:01 Dose: 30 mg Enoxaparin Sodium (Lovenox) 40 mg SUBCUT ONETIME ONE Stop: 02/19/19 12:41 Last Admin: 02/19/19 13:00 Dose: 40 mg Enoxaparin Sodium (Lovenox) 70 mg SUBCUT DAILY [facility] Last Admin: 02/20/19 08:49 Dose: 70 mg Lactated Ringer's (Ringers, Lactated) 1,000 mls @ 999 mls/hr IV ASDIRECTED [facility] Last Admin: 02/18/19 23:43 Dose: 999 mls/hr Azithromycin 500 mg/ Sodium (Chloride) 250 mls @ 250 mls/hr IV DAILY@0400 [facility] Last Admin: 02/19/19 04:54 Dose: 250 mls/hr Ceftriaxone Sodium 1 gm/ (Sodium Chloride) 50 mls @ 100 mls/hr IV DAILY@0600 [facility] Last Admin: 02/20/19 05:30 Dose: 100 mls/hr Sodium Chloride (Normal Saline) 1,000 mls @ 100 mls/hr IV ASDIRECTED [facility] Last Admin: 02/20/19 01:33 Dose: 100 mls/hr Levofloxacin/Dextrose 750 mg/ (Premix) 150 mls @ 100 mls/hr IV ONETIME ONE Stop: 02/19/19 14:29 Last Admin: 02/19/19 13:00 Dose: 100 mls/hr Sodium Chloride (Normal Saline) 88 mls @ 3.5 mls/sec IV ASDIRECTED [facility] Stop: 02/20/19 15:00 Last Admin: 02/20/19 10:50 Dose: 4 mls/sec Lorazepam (Ativan) 1 mg IV Q6H PRN PRN Reason: Nausea/Vomiting Pantoprazole Sodium (Protonix Iv) 40 mg IVPUSH DAILY [facility] - Exam Quality Assessment: DVT Prophylaxis General: Alert, Oriented, Cooperative, No Acute Distress Lungs: Clear to Auscultation, Normal Respiratory Effort Cardiovascular: Regular Rate, Regular Rhythm, No Murmurs GI/Abdominal Exam: Soft, Non-Tender, No Organomegaly, No Distention Extremities: Non-Tender, No Pedal Edema - Problem List Review Problem List Initiated/Reviewed/Updated: Yes - My Orders Last 24 Hours: My Active Orders 02/19/19 23:32 Melatonin 9 mg PO BEDTIME PRN 02/20/19 09:00 Magnesium Oxide 400 mg PO BID Magnesium Sulfate/Water [Magnesium Sulfate in Water Premix] 2 gm Premix Bag 1 bag IV Q6H 02/20/19 09:30 Iopamidol [Isovue-370 (76%)] 63 ml IV . DIRECTED Sodium Chloride 0.9% [Saline Flush] 10 ml FLUSH ONETIME PRN 02/20/19 14:39 Convert IV to Saline Lock [OM.PC] Routine 02/20/19 16:30 GLUCOSE POC LAB TO COLLECT [POC] QIDACANDBED 02/20/19 21:00 GLUCOSE POC LAB TO COLLECT [POC] QIDACANDBED 02/21/19 05:00 BASIC METABOLIC PANEL,BMP [CHEM] Timed MAGNESIUM [CHEM] Timed 02/21/19 09:00 Enoxaparin [Lovenox] 30 mg SUBCUT DAILY 02/21/19 12:30 Levofloxacin/Dextrose 5%-Water [Levaquin in D5W 500 MG/100 ML] 500 mg Premix Bag 1 bag IV Q48H - Plan Plan:: Assessment/Plan Fever, weakness, cough-recent hospitalization for pneumonia with sepsis and respiratory failure. Venous Doppler study of her left leg showed no evidence of deep vein thrombosis but did document a Ayala's cyst. No evidence of significant infiltrates identified on CT of the chest. -IV antibiotic; IV levofloxacin -IV fluids NS at 100ml/hr -Duo-neb and albuterol neb as needed -Tylenol 650 mg po every 4 hr prn fever -oxygen therapy to keep sats> 93% Hypomagnesemia -IV and oral magnesium replacement -Recheck magnesium level in a.m. Diarrhea-intermittent since previous hospitalization, no diarrhea thus far during this hospitalization. Ayala's cyst left knee-symptoms markedly improved from admission -Consider outpatient orthopedic evaluation Diabetes type 2 -diet controlled -blood glucose monitoring 4 times daily MAINTENANCE ISSUES -DVT prophylaxis; therapeutic Lovenox should provide adequate DVT prophylaxis -GI prophylaxis; Protonix 40 mg IV daily -Ricketts catheter; not indicated -Nutrition; consistent carb diet -Nicotine dependence; not required CODE STATUS-FULL CODE ADMISSION STATUS-patient will be admitted to inpatient status, expect at least a 2 night hospital stay for evaluation and management of problems as outlined above. At the time of this admission I do not reasonably expected evaluation and management of this problem will require more than a 96 hour hospital stay. DISPOSITION-anticipate discharge to home after the hospital stay. PRIMARY CARE PROVIDER- MARIA D Santiago Hospitalist: Dr. Quintero
[2019-02-20] MEDS: Acetaminophen 325 MG Tab PO PRN (20:39)
[2019-02-20] MEDS: Melatonin 3 MG Tab PO PRN (22:39)
[2019-02-21] MEDS: Pantoprazole 40 MG Tab.CR PO SCH (08:26)
[2019-02-21] MEDS: Levothyroxine 88 MCG Tab PO SCH (08:26)
[2019-02-21] MEDS: Lactobacillus Rhamnosus GG (Probiotic) Cap PO SCH ×2 (08:27→20:55)
[2019-02-21] MEDS: Furosemide 20 MG Tab PO SCH (08:27)
[2019-02-21] MEDS: Magnesium Oxide 400 MG Tab PO SCH ×2 (08:28→20:56)
[2019-02-21] MEDS: Allopurinol 100 MG Tab PO SCH (08:28)
[2019-02-21] MEDS: Enoxaparin 30 MG/0.3 ML Syringe SUBCUT SCH (08:28)
[2019-02-21] MEDS: Hypromellose 0.4% Ophth Soln 15 ML Bottle EYEBOTH SCH (08:29)
[2019-02-21] MEDS: Metoprolol Tartrate 50 MG Tab PO SCH ×2 (08:42→20:56)
--- NOTE | 2019-02-21 10:58 | PCM.PN ---
- General Info Date of Service: 02/21/19 Subjective Update: There were no acute events overnight. She has not had any fevers. She does have a loose cough. Shortness of breath has improved. She still feels weak compared to where she was a few days ago but has been making some improvements. She has not required supplemental oxygen. She has not had any diarrhea. Functional Status: Reports: Pain Controlled, Tolerating Diet - Review of Systems General: Reports: Weakness. Denies: Fever Pulmonary: Reports: Cough - Patient Data Vitals - Most Recent: Last Vital Signs Temp 35.9 C 02/21/19 07:00 Pulse 68 02/21/19 08:42 Resp 18 02/21/19 07:00 BP 171/69 H 02/21/19 08:42 Pulse Ox 97 02/21/19 07:00 Weight - Most Recent: 73.164 kg I&O - Last 24 Hours: Intake & Output 02/20/19 02/21/19 02/21/19 22:59 06:59 14:59 Intake Total 990 320 480 Output Total 950 700 550 Balance 40 -380 -70 Lab Results Last 24 Hours: Laboratory Results - last 24 hr 02/21/19 Range/Units 05:10 Sodium 139 L (140-148) mmol/L Potassium 4.4 (3.6-5.2) mmol/L Chloride 105 (100-108) mmol/L Carbon Dioxide 25 (21-32) mmol/L Anion Gap 13.4 (5.0-14.0) mmol/L BUN 28 H (7-18) mg/dL Creatinine 1.3 H (0.6-1.0) mg/dL Est Cr Clr Drug Dosing 26.03 mL/min Estimated GFR (MDRD) 40 L (>60) Glucose 122 H (74-106) mg/dL Calcium 9.4 (8.5-10.1) mg/dL Magnesium 2.9 H D (1.8-2.4) mg/dL [place] Results Last 24 Hours: Microbiology 02/18/19 23:45 Aerobic Blood Culture - Preliminary Blood - Arm, Left NO GROWTH AFTER 2 DAYS Anaerobic Blood Culture - Preliminary NO GROWTH AFTER 2 DAYS 02/18/19 23:40 Aerobic Blood Culture - Preliminary Blood - Venous - Iv Start NO GROWTH AFTER 2 DAYS Anaerobic Blood Culture - Preliminary NO GROWTH AFTER 2 DAYS Med Orders - Current: Current Medications Acetaminophen (Tylenol) 650 mg PO Q4H PRN PRN Reason: Pain (Mild 1-3)/fever Last Admin: 02/20/19 20:39 Dose: 650 mg Albuterol (Proventil Neb Soln) 2.5 mg NEB Q4H PRN PRN Reason: Shortness Of Breath/wheezing Albuterol/Ipratropium (Duoneb 3.0-0.5 Mg/3 Ml) 3 ml NEB QID PRN PRN Reason: Shortness Of Breath/wheezing Allopurinol (Zyloprim) 200 mg PO DAILY [facility] Last Admin: 02/21/19 08:28 Dose: 200 mg Artificial Tears (Natural Balance Tears) 0 ml EYEBOTH DAILY [facility] Last Admin: 02/21/19 08:29 Dose: 1 drop Bisacodyl (Dulcolax) 5 mg PO DAILY PRN PRN Reason: Constipation Cholestyramine Resin (Cholestyramine Packet) 4 gm PO Q24H [facility] Last Admin: 02/20/19 11:15 Dose: 4 gm Docusate Sodium (Colace) 100 mg PO BID PRN PRN Reason: Constipation Last Admin: 02/20/19 08:52 Dose: 100 mg Enoxaparin Sodium (Lovenox) 30 mg SUBCUT DAILY [facility] Last Admin: 02/21/19 08:28 Dose: 30 mg Furosemide (Lasix) 20 mg PO DAILY [facility] Last Admin: 02/21/19 08:27 Dose: 20 mg Levofloxacin/Dextrose 500 mg/ (Premix) 100 mls @ 100 mls/hr IV Q48H [facility] Lactobacillus Rhamnosus (Culturelle) 1 cap PO BID [facility] Last Admin: 02/21/19 08:27 Dose: 1 cap Levothyroxine Sodium (Synthroid) 88 mcg PO ACBREAKFAST [facility] Last Admin: 02/21/19 08:26 Dose: 88 mcg Loperamide HCl (Imodium) 2 mg PO Q4H PRN PRN Reason: Diarrhea Lorazepam (Ativan) 0.5 mg IV Q4H PRN PRN Reason: Nausea/Vomiting Magnesium Oxide (Magnesium Oxide) 400 mg PO BID [facility] Last Admin: 02/21/19 08:28 Dose: 400 mg Melatonin (Melatonin) 9 mg PO BEDTIME PRN PRN Reason: Insomnia Last Admin: 02/20/19 22:39 Dose: 9 mg Metoprolol Tartrate (Lopressor) 50 mg PO BID [facility] Last Admin: 02/21/19 08:42 Dose: 50 mg Ondansetron HCl (Zofran Odt) 4 mg PO Q6H PRN PRN Reason: Nausea able to take PO Pantoprazole Sodium (Protonix) 40 mg PO ACBREAKFAST [facility] Last Admin: 02/21/19 08:26 Dose: 40 mg Discontinued Medications Acetaminophen (Tylenol) 650 mg PO NOW ONE Stop: 02/18/19 22:55 Last Admin: 02/18/19 23:09 Dose: 650 mg Cholestyramine Resin (Cholestyramine Packet) 4 gm PO DAILY [facility] Last Admin: 02/19/19 09:08 Dose: Not Given Enoxaparin Sodium (Lovenox) 30 mg SUBCUT DAILY [facility] Last Admin: 02/19/19 09:01 Dose: 30 mg Enoxaparin Sodium (Lovenox) 40 mg SUBCUT ONETIME ONE Stop: 02/19/19 12:41 Last Admin: 02/19/19 13:00 Dose: 40 mg Enoxaparin Sodium (Lovenox) 70 mg SUBCUT DAILY [facility] Last Admin: 02/20/19 08:49 Dose: 70 mg Lactated Ringer's (Ringers, Lactated) 1,000 mls @ 999 mls/hr IV ASDIRECTED [facility] Last Admin: 02/18/19 23:43 Dose: 999 mls/hr Azithromycin 500 mg/ Sodium (Chloride) 250 mls @ 250 mls/hr IV DAILY@0400 [facility] Last Admin: 02/19/19 04:54 Dose: 250 mls/hr Ceftriaxone Sodium 1 gm/ (Sodium Chloride) 50 mls @ 100 mls/hr IV DAILY@0600 [facility] Last Admin: 02/20/19 05:30 Dose: 100 mls/hr Sodium Chloride (Normal Saline) 1,000 mls @ 100 mls/hr IV ASDIRECTED [facility] Last Admin: 02/20/19 01:33 Dose: 100 mls/hr Levofloxacin/Dextrose 750 mg/ (Premix) 150 mls @ 100 mls/hr IV ONETIME ONE Stop: 02/19/19 14:29 Last Admin: 02/19/19 13:00 Dose: 100 mls/hr Magnesium Sulfate 2 gm/ Premix 50 mls @ 25 mls/hr IV Q6H [facility] Stop: 02/20/19 22:59 Last Admin: 02/20/19 20:41 Dose: 25 mls/hr Sodium Chloride (Normal Saline) 88 mls @ 3.5 mls/sec IV ASDIRECTED [facility] Stop: 02/20/19 15:00 Last Admin: 02/20/19 10:50 Dose: 4 mls/sec Iopamidol (Isovue-370 (76%)) 63 ml IV . DIRECTED [facility] Stop: 02/20/19 15:00 Last Admin: 02/20/19 10:50 Dose: 63 ml Lorazepam (Ativan) 1 mg IV Q6H PRN PRN Reason: Nausea/Vomiting Pantoprazole Sodium (Protonix Iv) 40 mg IVPUSH DAILY [facility] Sodium Chloride (Saline Flush) 10 ml FLUSH ONETIME PRN PRN Reason: per radiology protocol Stop: 02/20/19 15:00 Last Admin: 02/20/19 10:51 Dose: 10 ml - Exam Quality Assessment: No: Supplemental Oxygen General: Alert, Oriented, Cooperative, No Acute Distress Lungs: Clear to Auscultation, Normal Respiratory Effort Cardiovascular: Regular Rate, Regular Rhythm GI/Abdominal Exam: Soft, No Distention Extremities: Pedal Edema. No: Increased Warmth Skin: Warm, Dry. No: Rash Psy/Mental Status: Alert, Normal Affect - Problem List Review Problem List Initiated/Reviewed/Updated: Yes - My Orders Last 24 Hours: My Active Orders 02/22/19 05:00 BASIC METABOLIC PANEL,BMP [CHEM] Timed CBC W/O DIFF,HEMOGRAM [HEME] Timed (1) - Plan Plan:: Assessment/Plan Probable acute bronchitis - she presented with fever, weakness, cough. Recent hospitalization for pneumonia with sepsis and respiratory failure. No DVT or PE and no infiltrates noted on CT. -Continue levofloxacin -Duo-neb and albuterol neb as needed -Tylenol 650 mg po every 4 hr prn fever -oxygen therapy to keep sats> 93% Hypomagnesemia - improved with supplementation Diarrhea - intermittent since previous hospitalization but no diarrhea during the hospital stay. Ayala's cyst left knee - symptoms markedly improved from admission -Consider outpatient orthopedic evaluation Diabetes type 2 - sugars well-controlled. -diet controlled -blood glucose monitoring 4 times daily MAINTENANCE ISSUES -DVT prophylaxis; enoxaparin -GI prophylaxis; PPI -Ricketts catheter; not indicated -Nutrition; consistent carb diet DISPOSITION - anticipate discharge to home after the hospital stay, likely tomorrow if stable overnight. Planning physical therapy today. PRIMARY CARE PROVIDER- MARIA D Santiago M.D.
[2019-02-21] MEDS: Cholestyramine/Sucrose Powder 4 GM Packet PO SCH (11:08)
[2019-02-21] MEDS ORDERED: Levofloxacin/Dextrose 5%-Water 750 MG in Premix Bag 1 BAG IV SCH (12:30)
[2019-02-21] MEDS ORDERED: Levofloxacin/Dextrose 5%-Water 500 MG in Premix Bag 1 BAG IV SCH (12:30)
[2019-02-21] MEDS: Melatonin 3 MG Tab PO PRN (22:44)
[2019-02-22] MEDS: Pantoprazole 40 MG Tab.CR PO SCH (07:27)
[2019-02-22] MEDS: Levothyroxine 88 MCG Tab PO SCH (07:27)
[2019-02-22] MEDS: Metoprolol Tartrate 50 MG Tab PO SCH (09:12)
[2019-02-22] MEDS: Enoxaparin 30 MG/0.3 ML Syringe SUBCUT SCH (09:13)
[2019-02-22] MEDS: Magnesium Oxide 400 MG Tab PO SCH (09:13)
[2019-02-22] MEDS: Furosemide 20 MG Tab PO SCH (09:13)
[2019-02-22] MEDS: Lactobacillus Rhamnosus GG (Probiotic) Cap PO SCH (09:13)
[2019-02-22] MEDS: Allopurinol 100 MG Tab PO SCH (09:14)
[2019-02-22] MEDS: Hypromellose 0.4% Ophth Soln 15 ML Bottle EYEBOTH SCH (09:14)
--- NOTE | 2019-02-22 10:17 | PCM.DCSUM1 ---
Discharge Summary - Hospital Course Brief History: 78-year-old female with history of controlled diabetes, recent admission for respiratory failure and sepsis who presented with fever, cough and weakness. She was admitted for management of presumed bronchitis. Diagnosis: Stroke: No - Discharge Data Discharge Date: 02/22/19 Discharge Disposition: Home, Self-Care 01 Condition: Fair - Discharge Diagnosis/Problem(s) (1) Acute bronchitis SNOMED Code(s): 96254609 ICD Code: J20.9 - ACUTE BRONCHITIS, UNSPECIFIED Status: Acute Current Visit: Yes Qualifiers: Bronchitis organism: unspecified organism Qualified Code(s): J20.9 - Acute bronchitis, unspecified (2) CKD (chronic kidney disease), stage III SNOMED Code(s): 581599508 ICD Code: N18.3 - CHRONIC KIDNEY DISEASE, STAGE 3 (MODERATE) Status: Chronic Current Visit: Yes (3) Diabetes type 2, controlled SNOMED Code(s): 83150300, 029894323 ICD Code: E11.9 - TYPE 2 DIABETES MELLITUS WITHOUT COMPLICATIONS Status: Chronic Priority: Low Current Visit: Yes Qualifiers: Diabetes mellitus lobsterman insulin use: without nursing home use Diabetes mellitus complication status: without complication Qualified Code(s): E11.9 - Type 2 diabetes mellitus without complications - Patient Summary/Data Consults: Consultations 02/19/19 03:07 Consult to Spiritual Care [CONS] Routine 02/21/19 13:17 PT Evaluation and Treatment [CONS] Routine Please Evaluate and Treat. PT Reason for Consult: Strengthening This query below is only for informational purposes and is not editable. Admission Diagnosis/Problem: Weakness Hospital Course: Cassandra presented to the emergency room with fever, weakness and cough. Workup in the emergency room revealed leukocytosis and fever but chest x-ray was clear. Her GFR was too low to complete a CT pulmonary angiogram to rule out pulmonary embolism. The patient was started on broad-spectrum antibiotics and admitted to hospital for further management. Overnight following admission she was on gentle IV fluids with the hope that her GFR would improve enough that she could complete a CT pulmonary angiogram. Temperature curve did improve with the antibiotics. Patient had a little bit of a cough but was not hypoxic. After hydration her GFR did improve to the point that we could complete a CT chest to rule out pulmonary embolism. CT scan did not show evidence for a pulmonary embolism. There is no evidence for pneumonia. Bronchitis seems to be the most likely cause for her difficulties at this time. Her white blood cell count has been steadily improving with the treatment outlined above. Antibiotics were narrowed from 2 different IV antibiotics down to just levofloxacin and she has continued to improve. She was weak during the early part of the hospital stay but has been working with physical therapy and was making improvements. Kidney function has slowly improved and is now back to baseline. There were no issues with her blood sugars during hospital stay. I believe she is safe for discharge at this time. She will need several additional days of antibiotics as outlined in the medication section. She has not required supplemental oxygen. She will be following up next week. She is waiting for an appointment with pulmonology to review her recent hospital stay for respiratory failure and sepsis. - Patient Instructions Diet: Regular Diet as Tolerated Activity: As Tolerated Driving: May Drive Today Showering/Bathing: May Shower Notify Provider of: Fever, Increased Pain, Nausea and/or Vomiting Other/Special Instructions: 1. You were in the hospital for management of acute bronchitis complicated by weakness. Your condition has been improving with antibiotic therapy and I do recommend 2 additional doses of antibiotics to complete treatment. You should take levofloxacin 750 mg on Thursday around 2 PM and on Thursday around 2 PM. 2. Continue your usual home medications as previously prescribed. If you need to use a stool softener to help with constipation I would recommend senna plus. This is a combination of both senna and docusate. You may take 1 tablet twice daily as needed to have regular formed bowel movements. 3. Follow up with your primary care next week. 4. Seek medical attention if fever greater than 101, severe shortness of breath or if you have severe diarrhea leading to dehydration. - Discharge Plan *PRESCRIPTION DRUG MONITORING PROGRAM REVIEWED*: Not Applicable *COPY OF PRESCRIPTION DRUG MONITORING REPORT IN PATIENT DEDRICK: Not Applicable Prescriptions/Med Rec: Levofloxacin 750 mg PO Q48H #2 tablet Home Medications: Home Meds Metoprolol Tartrate 50 mg PO BID 06/07/13 [History] atorvaSTATin [Lipitor] 10 mg PO BEDTIME 06/07/13 [History] MV,Ca,Min/Iron Fum/FA/Vit K [Multi For Her Tablet] 1 each PO DAILY 06/08/13 [ History] Levothyroxine [Synthroid] 88 mcg PO ACBREAKFAST 09/02/17 [History] Allopurinol [Zyloprim] 200 mg PO DAILY 10/07/18 [History] Aspirin [Ecotrin EC] 81 mg PO DAILY 10/07/18 [History] Cholestyramine/Sucrose [Cholestyramine] 4 gm PO DAILY 10/07/18 [History] Dextran 70/Hypromellose [Artificial Tears] 1 drp OP DAILY 10/07/18 [History] Albuterol [Ventolin HFA] 2 puff IH Q4HR 12/18/18 [History] Amoxicillin 2,000 mg PO ASDIRECTED 02/18/19 [History] Ferrous Sulfate 325 mg PO DAILY 02/18/19 [History] Furosemide 20 mg PO DAILY 02/18/19 [History] Levofloxacin 750 mg PO Q48H #2 tablet 02/22/19 [Rx] Oxygen Therapy Mode: Room Air Patient Handouts: Acute Bronchitis, Adult, [id number], Levofloxacin tablets Referrals: Wilton Toure, DOCTOR OF DENTAL SURGERY [Primary Care Provider] - (1 week - f/u hospital stay for acute bronchitis ) - Discharge Summary/Plan Comment DC Time >30 min.: No - Patient Data Vitals - Most Recent: Last Vital Signs Temp 36.2 C 02/22/19 07:00 Pulse 63 02/22/19 09:12 Resp 18 02/22/19 07:00 BP 178/63 H 02/22/19 09:12 Pulse Ox 96 02/22/19 07:00 Weight - Most Recent: 73.164 kg I&O - Last 24 hours: Intake & Output 02/21/19 02/22/19 02/22/19 22:59 06:59 14:59 Intake Total 1230 400 400 Output Total 1100 300 Balance 130 100 400 Lab Results - Last 24 hrs: Laboratory Results - last 24 hr 02/22/19 02/22/19 Range/Units 05:00 05:00 WBC 5.6 (4.5-11.0) K/uL RBC 3.24 L (3.30-5.50) M/uL Hgb 9.8 L (12.0-15.0) g/dL Hct 32.0 L (36.0-48.0) % MCV 99 H (80-98) fL MCH 30 (27-31) pg MCHC 31 L (32-36) % Plt Count 201 (150-400) K/uL Sodium 141 (140-148) mmol/L Potassium 4.7 (3.6-5.2) mmol/L Chloride 108 (100-108) mmol/L Carbon Dioxide 27 (21-32) mmol/L Anion Gap 6.3 (5.0-14.0) mmol/L BUN 30 H (7-18) mg/dL Creatinine 1.2 H (0.6-1.0) mg/dL Est Cr Clr Drug Dosing 28.20 mL/min Estimated GFR (MDRD) 44 L (>60) Glucose 118 H (74-106) mg/dL Calcium 9.4 (8.5-10.1) mg/dL ANGIE Results - Last 24 hrs: Microbiology 02/18/19 23:45 Aerobic Blood Culture - Preliminary Blood - Arm, Left NO GROWTH AFTER 3 DAYS Anaerobic Blood Culture - Preliminary NO GROWTH AFTER 3 DAYS 02/18/19 23:40 Aerobic Blood Culture - Preliminary Blood - Venous - Iv Start NO GROWTH AFTER 3 DAYS Anaerobic Blood Culture - Preliminary NO GROWTH AFTER 3 DAYS Med Orders - Current: Current Medications Acetaminophen (Tylenol) 650 mg PO Q4H PRN PRN Reason: Pain (Mild 1-3)/fever Last Admin: 02/20/19 20:39 Dose: 650 mg Albuterol (Proventil Neb Soln) 2.5 mg NEB Q4H PRN PRN Reason: Shortness Of Breath/wheezing Albuterol/Ipratropium (Duoneb 3.0-0.5 Mg/3 Ml) 3 ml NEB QID PRN PRN Reason: Shortness Of Breath/wheezing Allopurinol (Zyloprim) 200 mg PO DAILY [facility] Last Admin: 02/22/19 09:14 Dose: 200 mg Artificial Tears (Natural Balance Tears) 0 ml EYEBOTH DAILY [facility] Last Admin: 02/22/19 09:14 Dose: 1 drop Bisacodyl (Dulcolax) 5 mg PO DAILY PRN PRN Reason: Constipation Cholestyramine Resin (Cholestyramine Packet) 4 gm PO Q24H [facility] Last Admin: 02/21/19 11:08 Dose: 4 gm Docusate Sodium (Colace) 100 mg PO BID PRN PRN Reason: Constipation Last Admin: 02/20/19 08:52 Dose: 100 mg Enoxaparin Sodium (Lovenox) 30 mg SUBCUT DAILY [facility] Last Admin: 02/22/19 09:13 Dose: 30 mg Furosemide (Lasix) 20 mg PO DAILY [facility] Last Admin: 02/22/19 09:13 Dose: 20 mg Levofloxacin/Dextrose 750 mg/ (Premix) 150 mls @ 100 mls/hr IV Q48H [facility] Last Admin: 02/21/19 14:37 Dose: 100 mls/hr Lactobacillus Rhamnosus (Culturelle) 1 cap PO BID [facility] Last Admin: 02/22/19 09:13 Dose: 1 cap Levothyroxine Sodium (Synthroid) 88 mcg PO ACBREAKFAST [facility] Last Admin: 02/22/19 07:27 Dose: 88 mcg Loperamide HCl (Imodium) 2 mg PO Q4H PRN PRN Reason: Diarrhea Lorazepam (Ativan) 0.5 mg IV Q4H PRN PRN Reason: Nausea/Vomiting Magnesium Oxide (Magnesium Oxide) 400 mg PO BID [facility] Last Admin: 02/22/19 09:13 Dose: 400 mg Melatonin (Melatonin) 9 mg PO BEDTIME PRN PRN Reason: Insomnia Last Admin: 02/21/19 22:44 Dose: 9 mg Metoprolol Tartrate (Lopressor) 50 mg PO BID [facility] Last Admin: 02/22/19 09:12 Dose: 50 mg Ondansetron HCl (Zofran Odt) 4 mg PO Q6H PRN PRN Reason: Nausea able to take PO Pantoprazole Sodium (Protonix) 40 mg PO ACBREAKFAST [facility] Last Admin: 02/22/19 07:27 Dose: 40 mg Discontinued Medications Acetaminophen (Tylenol) 650 mg PO NOW ONE Stop: 02/18/19 22:55 Last Admin: 02/18/19 23:09 Dose: 650 mg Cholestyramine Resin (Cholestyramine Packet) 4 gm PO DAILY [facility] Last Admin: 02/19/19 09:08 Dose: Not Given Enoxaparin Sodium (Lovenox) 30 mg SUBCUT DAILY [facility] Last Admin: 02/19/19 09:01 Dose: 30 mg Enoxaparin Sodium (Lovenox) 40 mg SUBCUT ONETIME ONE Stop: 02/19/19 12:41 Last Admin: 02/19/19 13:00 Dose: 40 mg Enoxaparin Sodium (Lovenox) 70 mg SUBCUT DAILY [facility] Last Admin: 02/20/19 08:49 Dose: 70 mg Lactated Ringer's (Ringers, Lactated) 1,000 mls @ 999 mls/hr IV ASDIRECTED [facility] Last Admin: 02/18/19 23:43 Dose: 999 mls/hr Azithromycin 500 mg/ Sodium (Chloride) 250 mls @ 250 mls/hr IV DAILY@0400 [facility] Last Admin: 02/19/19 04:54 Dose: 250 mls/hr Ceftriaxone Sodium 1 gm/ (Sodium Chloride) 50 mls @ 100 mls/hr IV DAILY@0600 [facility] Last Admin: 02/20/19 05:30 Dose: 100 mls/hr Sodium Chloride (Normal Saline) 1,000 mls @ 100 mls/hr IV ASDIRECTED [facility] Last Admin: 02/20/19 01:33 Dose: 100 mls/hr Levofloxacin/Dextrose 750 mg/ (Premix) 150 mls @ 100 mls/hr IV ONETIME ONE Stop: 02/19/19 14:29 Last Admin: 02/19/19 13:00 Dose: 100 mls/hr Magnesium Sulfate 2 gm/ Premix 50 mls @ 25 mls/hr IV Q6H [facility] Stop: 02/20/19 22:59 Last Admin: 02/20/19 20:41 Dose: 25 mls/hr Sodium Chloride (Normal Saline) 88 mls @ 3.5 mls/sec IV ASDIRECTED [facility] Stop: 02/20/19 15:00 Last Admin: 02/20/19 10:50 Dose: 4 mls/sec Iopamidol (Isovue-370 (76%)) 63 ml IV . DIRECTED [facility] Stop: 02/20/19 15:00 Last Admin: 02/20/19 10:50 Dose: 63 ml Lorazepam (Ativan) 1 mg IV Q6H PRN PRN Reason: Nausea/Vomiting Pantoprazole Sodium (Protonix Iv) 40 mg IVPUSH DAILY [facility] Sodium Chloride (Saline Flush) 10 ml FLUSH ONETIME PRN PRN Reason: per radiology protocol Stop: 02/20/19 15:00 Last Admin: 02/20/19 10:51 Dose: 10 ml - Exam Quality Assessment: Denies: Supplemental Oxygen General: Reports: Alert, Oriented, No Acute Distress Lungs: Reports: Clear to Auscultation, Normal Respiratory Effort Cardiovascular: Reports: Regular Rate, Regular Rhythm, Other (pacemaker site is clean with no erythema, warmth or drainage) GI/Abdominal Exam: Soft, No Distention Extremities: No Pedal Edema Skin: Reports: Warm, Dry Wound/Incisions: Reports: Healing Well Psy/Mental Status: Reports: Alert, Normal Affect
[2019-02-22 10:29] VITALS: BP 178/67
[2019-02-22] MEDS: Cholestyramine/Sucrose Powder 4 GM Packet PO SCH (10:42)
== END 2019-02-22 14:25 | disposition home or self-care (01) | DRG 203 ==
LOC: JP.ED 21:41 → JP.MS 02-19 02:45
PROVIDERS: ADMIT Hospitalist; ATTEND Internal Medicine
DX: J20.9 Acute bronchitis, unspecified (principal); I12.9 Hypertensive chronic kidney disease with stage 1 through stage 4 chronic kidney disease, or unspecified chronic kidney disease; E11.22 Type 2 diabetes mellitus with diabetic chronic kidney disease; N18.3 Chronic kidney disease, stage 3 (moderate); R50.9 Fever, unspecified; R53.1 Weakness; R05 Cough; E78.00 Pure hypercholesterolemia, unspecified; Z95.0 Presence of cardiac pacemaker; M19.90 Unspecified osteoarthritis, unspecified site; M81.0 Age-related osteoporosis without current pathological fracture; M10.9 Gout, unspecified; M71.22 Synovial cyst of popliteal space [Baker], left knee; E83.42 Hypomagnesemia; D64.9 Anemia, unspecified; N81.4 Uterovaginal prolapse, unspecified; R19.7 Diarrhea, unspecified; Z96.659 Presence of unspecified artificial knee joint; Z88.1 Allergy status to other antibiotic agents; Z88.5 Allergy status to narcotic agent; Z88.8 Allergy status to other drugs, medicaments and biological substances; Z79.82 Long term (current) use of aspirin
CPT/HCPCS: 36415 ×2; 71046; 80053; 81001; 83605; 83880; 84145; 84484; 85025; 85379; 86140; 87040 ×2; 96360; 99285; A9270; J7120; 71275; 80048; 82962; 83735; 85027; 93971-LT; J0456; J0696; J1650; J1956; J3475; J7030; J7050; Q9967

== ENCOUNTER 2020-09-18 09:30 | Emergency (ER) | payer MEDICARE, BC ==
--- NOTE | 2020-09-18 10:53 | EDM.PDOC ---
ED HPI GENERAL MEDICAL PROBLEM - General Chief Complaint: Cardiovascular Problem Stated Complaint: HIGH BLOOD PRESSURE VIA [facility] Time Seen by Provider: 09/18/20 10:30 Source of Information: Reports: Patient, EMS History Limitations: Reports: No Limitations - History of Present Illness INITIAL COMMENTS - FREE TEXT/NARRATIVE: 79-year-old female brought in by ambulance with 2 days of weakness, dark stools, and higher blood pressure than normal. She has no history of GI bleed in the past and is only on aspirin. She denies shortness of breath or nausea, however she does have loose stools and chronic incontinence. Onset: Gradual (Symptoms for the last 2 to 3 days) Associated Symptoms: Reports: Malaise, Weakness, Other ("High blood pressure"). Denies: Confusion, Chest Pain, Cough, Fever/Chills, Headaches - Related Data Allergies Allergy/AdvReac Type Severity Reaction Status Date / Time acetaminophen [From Vicodin] Allergy Intermediate GI Verified 09/18/20 09:59 INTOLERANCE codeine AdvReac Intermediate GI UPSET Verified 09/18/20 09:59 doxycycline AdvReac Intermediate GI Verified 09/18/20 09:59 INTOLERANCE hydrocodone bitartrate AdvReac Intermediate GI Verified 09/18/20 09:59 [From Vicodin] INTOLERANCE indomethacin AdvReac Diarrhea Verified 09/18/20 09:59 Home Meds: Home Meds Metoprolol Tartrate 50 mg PO BID 06/07/13 [History] atorvaSTATin [Lipitor] 10 mg PO BEDTIME 06/07/13 [History] Mv,Calcium,Min/Iron/Folic/Vitk [Multi For Her Tablet] 1 each PO DAILY 06/08/13 [History] Levothyroxine [Synthroid] 88 mcg PO ACBREAKFAST 04/25/17 [History] Aspirin [Ecotrin EC] 81 mg PO DAILY 10/07/18 [History] Dextran 70/Hypromellose [Artificial Tears] 1 drp OP DAILY 10/07/18 [History] allopurinoL [Zyloprim] 200 mg PO DAILY 10/07/18 [History] Albuterol [Ventolin HFA] 2 puff IH Q4HR 12/18/18 [History] Amoxicillin 2,000 mg PO ASDIRECTED 02/18/19 [History] Ferrous Sulfate 325 mg PO DAILY 02/18/19 [History] Furosemide 20 mg PO ASDIRECTED 02/18/19 [History] Cholecalciferol (Vitamin D3) [Vitamin D3] 1,000 mg PO BID 09/18/20 [History] Loperamide [Imodium] 0.5 tab PO DAILY 09/18/20 [History] Magnesium Chloride [Mag-64] 2 tab PO BID 09/18/20 [History] Sodium Bicarbonate 650 mg PO BEDTIME 09/18/20 [History] lisinopriL [Prinivil] 20 mg PO DAILY 09/18/20 [History] Past Medical History HEENT History: Reports: Cataract Cardiovascular History: Reports: High Cholesterol, Hypertension, Pacemaker Respiratory History: Reports: SOB, Other (See Below) Other Respiratory History: WALKING DISTANCE. right side diaphragm collapsed. Gastrointestinal History: Reports: Cholelithiasis, Chronic Diarrhea, Hemorrhoids, Other (See Below) Other Gastrointestinal History: DIARRHEA Genitourinary History: Reports: Other (See Below) Other Genitourinary History: pt. to see a urologist 05/2017. pt. has a tipped uterus, has difficulty emptying bladder [employer] History: Reports: , Prolapsed Uterus Musculoskeletal History: Reports: Arthritis, Gout, Osteoarthritis, Osteoporosis Endocrine/Metabolic History: Reports: Diabetes, Type II, Hypoparathyroidism, Other (See Below) Other Endocrine/Metabolic History: boaderline/pre-diabetic Hematologic History: Reports: Anemia, Blood Transfusion(s) Dermatologic History: Reports: Cellulitis - Infectious Disease History Infectious Disease History: Reports: Chicken Pox, Measles, Meningitis, Mumps - Past Surgical History HEENT Surgical History: Reports: Cataract Surgery, Oral Surgery GI Surgical History: Reports: Appendectomy, Cholecystectomy, Colonoscopy, Hernia, Abdominal Other GI Surgeries/Procedures: HIATAL HERNIA Female Surgical History: Reports: D&C Musculoskeletal Surgical History: Reports: Knee Replacement Other Musculoskeletal Surgeries/Procedures:: BOTH KNEES Dermatological Surgical History: Reports: Other (See Below) Social & Family History - Family History Family Medical History: No Pertinent Family History - Tobacco Use Tobacco Use Status *Q: Never Tobacco User - Caffeine Use Caffeine Use: Reports: None - Recreational Drug Use Recreational Drug Use: No ED ROS GENERAL - Review of Systems Review Of Systems: See Below Constitutional: Reports: Malaise. Denies: Fever, Chills HEENT: Reports: No Symptoms Respiratory: Denies: Shortness of Breath, Pleuritic Chest Pain Cardiovascular: Reports: Blood Pressure Problem. Denies: Palpitations GI/Abdominal: Reports: Diarrhea, Melena. Denies: Abdominal Pain, Nausea, Vomiting Skin: Denies: Pallor Neurological: Reports: Dizziness, Weakness Psychiatric: Reports: No Symptoms ED EXAM, GENERAL - Physical Exam Exam: See Below Exam Limited By: No Limitations General Appearance: Alert, No Apparent Distress Eye Exam: Bilateral Eye: Normal Inspection Head: Atraumatic Neck: Supple, Non-Tender Respiratory/Chest: Lungs Clear Cardiovascular: Regular Rate, Rhythm, Systolic Murmur (2/6) GI/Abdominal: Soft, Tender (Patient does react with some tenderness to palpation in the epigastric area but no guarding) Rectal (Female) Exam: Black Stool, Heme + Stool, Hemorrhoids (External soft hemorrhoids are nontender), Other (No rectal masses felt, stool is soft and very dark) Extremities: No Pedal Edema Neurological: Alert, Oriented, No Motor/Sensory Deficits Psychiatric: Normal Affect, Normal Mood Skin Exam: Warm, Dry Course - Vital Signs Last Recorded V/S: Last Vital Signs Temp 97.9 F 09/18/20 09:56 Pulse 69 09/18/20 15:08 Resp 16 09/18/20 15:08 BP 193/66 H 09/18/20 15:16 Pulse Ox 98 09/18/20 15:08 - Orders/Labs/Meds Orders: Active Orders 24 hr Category Date Time Status Sodium Chloride 0.9% [Normal Saline] 1,000 ml Med 09/18/20 11:00 Active IV ASDIRECTED Medication Orders Sodium Chloride (Normal Saline) 1,000 mls @ 150 mls/hr IV ASDIRECTED GERARDO Last Admin: 09/18/20 12:17 Dose: 150 mls/hr Documented by: VAL Labs: Laboratory Tests 09/18/20 09/18/20 09/18/20 Range/Units 11:04 11:04 14:37 WBC 7.5 (4.5-11.0) K/uL RBC 4.05 (3.30-5.50) M/uL Hgb 12.5 D (12.0-15.0) g/dL Hct 39.9 (36.0-48.0) % MCV 99 H (80-98) fL MCH 31 (27-31) pg MCHC 31 L (32-36) % Plt Count 173 (150-400) K/uL Neut % (Auto) 72 H (36-66) % Lymph % (Auto) 19 L (24-44) % [place] % (Auto) 7 H (2-6) % Eos % (Auto) 2 (2-4) % Baso % (Auto) 0 (0-1) % Sodium 141 (140-148) mmol/L Potassium 4.4 (3.6-5.2) mmol/L Chloride 106 (100-108) mmol/L Carbon Dioxide 27 (21-32) mmol/L Anion Gap 7.7 (5.0-14.0) mmol/L BUN 23 H (7-18) mg/dL Creatinine 1.1 H (0.6-1.0) mg/dL Est Cr Clr Drug Dosing 30.28 mL/min Estimated GFR (MDRD) 48 L (>60) Glucose 113 H (74-106) mg/dL Calcium 10.0 (8.5-10.1) mg/dL Total Bilirubin 0.6 (0.2-1.0) mg/dL AST 13 L (15-37) U/L ALT 17 (12-78) U/L Alkaline Phosphatase 83 (46-116) U/L Total Protein 6.4 (6.4-8.2) g/dL Albumin 3.1 L (3.4-5.0) g/dL Globulin 3.3 (2.3-3.5) g/dL Albumin/Globulin Ratio 0.9 L (1.2-2.2) SARS-CoV-2 RNA (ANUP) Negative (NEGATIVE) Meds: Medications Generic Name Dose Route Start Last Admin Trade Name Freq PRN Reason Stop Dose Admin Sodium Chloride 1,000 mls @ 150 mls/hr 09/18/20 11:00 09/18/20 12:17 Normal Saline IV 150 mls/hr ASDIRECTED GERARDO Administration Discontinued Medications Generic Name Dose Route Start Last Admin Trade Name Freq PRN Reason Stop Dose Admin Labetalol HCl 5 mg 09/18/20 11:54 09/18/20 12:37 Normodyne IVPUSH 09/18/20 11:55 5 mg ONETIME ONE Administration Protocol Labetalol HCl 10 mg 09/18/20 14:35 09/18/20 15:12 Normodyne IVPUSH 09/18/20 14:36 10 mg ONETIME ONE Administration Protocol Pantoprazole Sodium 40 mg 09/18/20 10:58 09/18/20 12:35 Protonix Iv IVPUSH 09/18/20 10:59 40 mg ONETIME ONE Administration - Re-Assessments/Exams Free Text/Narrative Re-Assessment/Exam: 09/18/20 10:57 Stool guaiac was positive, CBC CMP were obtained in past records will be o btained from the clinic to compare lab levels. IV was started with normal saline at maintenance fluids and she was given 40 mg of IV Protonix. 09/18/20 11:25 Hemoglobin 12.5, it was thirteen 1 month ago. CMP still pending. Patient probably should be admitted for serial hemoglobins and further evaluation. 09/18/20 12:09 CMP is reassuring, kidney function is actually good compared to her baseline. Her systolic blood pressure flores to 215 so she was given 10 mg of IV labetalol. She needs hospitalization for serial hemoglobins but no it is available, Dr. Cortes in [facility] excepted the patient for transfer. 09/18/20 15:54 Labetalol was repeated just prior to transfer. Departure - Departure Time of Disposition: 15:54 Disposition: DC/Tfer to Other Reason for Transfer *Q: Other Clinical Impression: GI bleed Qualifiers: GI bleed type/associated pathology: melena Qualified Code(s): K92.1 - Melena Hypertension Qualifiers: Hypertension type: essential hypertension Qualified Code(s): I10 - Essential (primary) hypertension Referrals: Wilton Toure NP [Primary Care Provider] - Forms: ED Department Discharge Care Plan Goals: Patient will be transferred by EMS to [facility] for direct admit to the hospitalist service, accepted by Dr. Cortes. Transfer is for evaluation and management of suspected GI bleed. Sepsis Event Note (ED) - Evaluation Sepsis Screening Result: No Definite Risk - Focused Exam Vital Signs: Vital Signs Temp Pulse Resp BP Pulse Ox 09/18/20 15:16 193/66 H 09/18/20 15:08 69 16 215/82 H 98 09/18/20 13:28 63 16 182/61 H 98 09/18/20 12:55 64 189/67 H 98 09/18/20 12:38 64 16 202/79 H 98 09/18/20 11:06 61 16 194/80 H 98 09/18/20 09:56 97.9 F 61 16 197/71 H 98 - My Orders Last 24 Hours: My Active Orders 09/18/20 11:00 Sodium Chloride 0.9% [Normal Saline] 1,000 ml IV ASDIRECTED - Assessment/Plan Last 24 Hours: My Active Orders 09/18/20 11:00 Sodium Chloride 0.9% [Normal Saline] 1,000 ml IV ASDIRECTED
[2020-09-18] MEDS ORDERED: Pantoprazole 40 MG Vial IVPUSH ONE (10:58)
[2020-09-18] MEDS ORDERED: Sodium Chloride 0.9% 1,000 ML IV SCH (11:00)
[2020-09-18] MEDS ORDERED: Labetalol 20 MG/4 ML Syringe IVPUSH ONE ×2 (11:54→14:35)
[2020-09-18 15:11] VITALS: PULSE 69
[2020-09-18 15:18] VITALS: BP 193/66
== END 2020-09-18 15:23 | disposition other institution (70) ==
LOC: JP.ED 09:30
DX: K92.1 Melena (principal); I10 Essential (primary) hypertension; E78.00 Pure hypercholesterolemia, unspecified; M10.9 Gout, unspecified; E11.9 Type 2 diabetes mellitus without complications; E20.9 Hypoparathyroidism, unspecified; Z88.6 Allergy status to analgesic agent; Z88.5 Allergy status to narcotic agent; Z88.1 Allergy status to other antibiotic agents; Z79.82 Long term (current) use of aspirin; Z79.899 Other long term (current) drug therapy; Z20.822 Contact with and (suspected) exposure to COVID-19
CPT/HCPCS: 36415; 80053; 82272; 85025; 96374; 96375; 96376; 99285; C9113; J3490; J7030; U0002

== ENCOUNTER 2022-10-22 08:33 | Inpatient (IN) | payer MEDICARE, BC ==
[2022-10-22] MEDS ORDERED: Magnesium Sulfate/Water 2 GM in Premix Bag 1 BAG IV ONE (09:40)
[2022-10-22] MEDS ORDERED: Dextrose 5%-0.9% NaCl 1,000 ML IV SCH (10:00)
[2022-10-22] MEDS ORDERED: fentaNYL 50 MCG/ML SDV IVPUSH ONE (10:00)
[2022-10-22] MEDS ORDERED: oxyCODONE 5 MG Tab PO ONE (10:40)
[2022-10-22] MEDS ORDERED: Acetaminophen 1,000 MG in Premix Bag 1 BAG IV ONE (13:38)
[2022-10-22] MEDS ORDERED: Sodium Chloride 0.9% 10 ML Syringe FLUSH PRN (15:27)
[2022-10-22] MEDS ORDERED: Furosemide 20 MG Tab PO SCH (15:27)
[2022-10-22] MEDS ORDERED: Ondansetron 4 MG/2 ML SDV IV PRN (15:27)
[2022-10-22] MEDS ORDERED: Glucose Gel 15 GM in 37.5 GM Tube PO PRN (16:24)
[2022-10-22] MEDS ORDERED: 50% Dextrose in Water 50 ML Syringe IV PRN (16:24)
[2022-10-22] MEDS: HYDROmorphone 0.5 MG/0.5 ML Syringe IVPUSH PRN ×2 (16:27→20:33)
[2022-10-22] MEDS: Enoxaparin 30 MG/0.3 ML Syringe SUBCUT SCH (16:27)
[2022-10-22] MEDS ORDERED: Furosemide 20 MG Tab PO PRN (16:39)
[2022-10-22] MEDS: Insulin Lispro 100 Unit/ML 3 ML KwikPen SUBCUT SCH ×2 (17:43→21:08)
[2022-10-22] MEDS: Magnesium Oxide 400 MG Tab PO SCH (20:33)
[2022-10-22] MEDS: atorvaSTATin 10 MG Tab PO SCH (20:33)
[2022-10-22] MEDS: Metoprolol Tartrate 50 MG Tab PO SCH (20:33)
[2022-10-23] MEDS: HYDROmorphone 0.5 MG/0.5 ML Syringe IVPUSH PRN (02:09)
[2022-10-23] MEDS: oxyCODONE 5 MG Tab PO PRN ×4 (07:19→20:23)
[2022-10-23] MEDS: Pantoprazole 40 MG Tab.CR PO SCH (07:21)
[2022-10-23] MEDS: Levothyroxine 88 MCG Tab PO SCH (07:22)
[2022-10-23] MEDS: Insulin Lispro 100 Unit/ML 3 ML KwikPen SUBCUT SCH ×4 (08:36→21:14)
[2022-10-23] MEDS: Ferrous Sulfate 325 MG Tab PO SCH (08:44)
[2022-10-23] MEDS: Hypromellose 0.3% Ophth Soln 15 ML Bottle EYEBOTH SCH (08:44)
[2022-10-23] MEDS: Aspirin 81 MG Tab.EC PO SCH (08:45)
[2022-10-23] MEDS: Loperamide 1 MG/7.5 ML 7.5 ML UD Cup PO SCH (08:45)
[2022-10-23] MEDS: Magnesium Oxide 400 MG Tab PO SCH ×2 (08:46→20:40)
[2022-10-23] MEDS: Lisinopril 20 MG Tab PO SCH (08:46)
[2022-10-23] MEDS: Metoprolol Tartrate 50 MG Tab PO SCH ×2 (08:46→20:40)
[2022-10-23] MEDS: Allopurinol 100 MG Tab PO SCH (08:46)
[2022-10-23] MEDS ORDERED: Loperamide 2 MG Cap PO SCH (09:00)
[2022-10-23] MEDS: Enoxaparin 30 MG/0.3 ML Syringe SUBCUT SCH (15:14)
[2022-10-23] MEDS: atorvaSTATin 10 MG Tab PO SCH (20:40)
[2022-10-24] MEDS: oxyCODONE 5 MG Tab PO PRN ×2 (06:15→10:37)
[2022-10-24] MEDS: Levothyroxine 88 MCG Tab PO SCH (07:38)
[2022-10-24] MEDS: Pantoprazole 40 MG Tab.CR PO SCH (07:38)
[2022-10-24] MEDS: Insulin Lispro 100 Unit/ML 3 ML KwikPen SUBCUT SCH (07:38)
[2022-10-24] MEDS: Aspirin 81 MG Tab.EC PO SCH (09:52)
[2022-10-24] MEDS: Loperamide 1 MG/7.5 ML 7.5 ML UD Cup PO SCH (09:52)
[2022-10-24] MEDS: Magnesium Oxide 400 MG Tab PO SCH (09:52)
[2022-10-24] MEDS: Ferrous Sulfate 325 MG Tab PO SCH (09:52)
[2022-10-24] MEDS: Allopurinol 100 MG Tab PO SCH (09:53)
[2022-10-24] MEDS: Lisinopril 20 MG Tab PO SCH (09:53)
[2022-10-24] MEDS: Hypromellose 0.3% Ophth Soln 15 ML Bottle EYEBOTH SCH (09:53)
[2022-10-24] MEDS: Metoprolol Tartrate 50 MG Tab PO SCH (09:55)
[2022-10-24 09:57] VITALS: BP 126/54; PULSE 70
== END 2022-10-24 11:46 | DRG 563 ==
LOC: JP.ED 08:33 → JP.MS 14:37
PROVIDERS: ADMIT Hospitalist; ATTEND Hospitalist
DX: S42.201A Unspecified fracture of upper end of right humerus, initial encounter for closed fracture (principal); I50.32 Chronic diastolic (congestive) heart failure; I13.0 Hypertensive heart and chronic kidney disease with heart failure and stage 1 through stage 4 chronic kidney disease, or unspecified chronic kidney disease; N18.31 Chronic kidney disease, stage 3a; E78.00 Pure hypercholesterolemia, unspecified; W18.30XA Fall on same level, unspecified, initial encounter; M19.90 Unspecified osteoarthritis, unspecified site; M10.9 Gout, unspecified; M81.0 Age-related osteoporosis without current pathological fracture; Z20.822 Contact with and (suspected) exposure to COVID-19; E11.22 Type 2 diabetes mellitus with diabetic chronic kidney disease; S80.01XA Contusion of right knee, initial encounter; S70.02XA Contusion of left hip, initial encounter; E83.42 Hypomagnesemia; D63.1 Anemia in chronic kidney disease; Z96.653 Presence of artificial knee joint, bilateral; I44.1 Atrioventricular block, second degree; M89.8X9 Other specified disorders of bone, unspecified site; Z87.891 Personal history of nicotine dependence; Z79.82 Long term (current) use of aspirin; Z79.899 Other long term (current) drug therapy; Z98.49 Cataract extraction status, unspecified eye; Z90.49 Acquired absence of other specified parts of digestive tract; Z98.890 Other specified postprocedural states; Y92.098 Other place in other non-institutional residence as the place of occurrence of the external cause; Z88.5 Allergy status to narcotic agent; Z88.8 Allergy status to other drugs, medicaments and biological substances; Z95.0 Presence of cardiac pacemaker
CPT/HCPCS: 36415; 73020-26-RT; 73020-RT; 73502-26-LT; 73502-LT; 73564-26-RT; 73564-RT; 80048; 81001; 82947; 83735; 84100; 85025; 93005; 96365; 96366; 96367; 96375; 97110-GO; 97110-GP; 97162-GP; 97165-GO; 97530-GP; 97535-GP; 99285-25; A9270-GY; J0131; J1170; J1650; J1815; J3010; J3475; U0002

== ENCOUNTER 2023-08-28 10:20 | Emergency (ER) | payer MEDICARE, BC ==
[2023-08-28] MEDS ORDERED: Acetaminophen 500 MG Tab PO ONE (11:16)
[2023-08-28] MEDS ORDERED: Diclofenac Sodium 1% Gel 100 GM Tube TOP ONE (11:17)
[2023-08-28 11:24] LABS: BASOPHILS ABSOLUTE AUTO 0.03 K/uL (0.00-0.10); BASOPHILS PERCENT AUTO 0.2 % (0.1-1.3); EOSINOPHILS ABSOLUTE AUTO 0.18 K/uL (0.00-0.40); EOSINOPHILS PERCENT AUTO 1.3 % (0.0-5.4); HEMATOCRIT 35.4 % (34.3-46.0); HEMOGLOBIN 11.2 g/dL (11.2-15.5); IMMATURE GRAN ABSOLUTE AUTO 0.05 K/uL (0.00-0.23); IMMATURE GRAN PERCENT AUTO 0.4 % (0.0-0.7); LYMPHOCYTES ABSOLUTE AUTO 0.98 K/uL (0.8-3.3); LYMPHOCYTES PERCENT AUTO 7.2 % (11.4-47.7); MEAN CORPUSCULAR HEMOGLOBIN 30.9 pg (31.6-35.5); MEAN CORPUSCULAR HGB CONC 31.6 g/dL (31.6-35.5); MEAN CORPUSCULAR VOLUME 97.8 fL (81.4-99.0); MONOCYTES ABSOLUTE AUTO 0.67 K/uL (0.20-0.90); MONOCYTES PERCENT AUTO 4.9 % (3.3-12.6); NEUTROPHILS ABSOLUTE AUTO 11.66 K/uL (1.0-7.6); PLATELET COUNT,PLT 183 K/uL (130-375); RED BLOOD CELL COUNT 3.62 M/uL (3.77-5.24); WHITE BLOOD CELL COUNT,WBC 13.6 K/uL (3.2-11.0)
[2023-08-28 11:49] LABS: C-REACTIVE PROTEIN 0.59 mg/dL (<0.50); TROPONIN I HIGH SENSITIVITY 12.9 pg/mL (<=60.3)
[2023-08-28 11:50] LABS: PROTHROMBIN TIME 10.4 sec (9.2-10.6); PTT,PARTIAL THROMBOPLSTIN TIME 23.9 sec (21.8-27.3)
[2023-08-28 12:12] LABS: A/G RATIO 0.8 (1.2-2.2); ALANINE AMINOTRANSFERASE,ALT 16 U/L (12-78); ALBUMIN 2.9 g/dL (3.4-5.0); ALKALINE PHOSPHATASE 91 U/L (46-116); ANION GAP 13.4 mmol/L (5.0-14.0); ASPARTATE AMNIOTRANSFERASE,AST 14 U/L (15-37); BILIRUBIN TOTAL 0.4 mg/dL (0.2-1.0); BLOOD UREA NITROGEN,BUN 36 mg/dL (7-18); CALCIUM 9.2 mg/dL (8.5-10.1); CARBON DIOXIDE,CO2 25 mmol/L (21-32); CHLORIDE,CL 105 mmol/L (100-108); CREATININE 1.3 mg/dL (0.6-1.0); EST CRCL DRUG DOSING (CG) 24.38 mL/min; ESTIMATED GFR 41 mL/min (>60); GLUCOSE RANDOM 161 mg/dL (74-106); POTASSIUM,K 4.4 mmol/L (3.6-5.2); PROTEIN TOTAL,TP 6.5 g/dL (6.4-8.2); SODIUM,NA 139 mmol/L (140-148)
[2023-08-28 12:59] VITALS: BP 108/50; PULSE 62
== END 2023-08-28 13:05 | disposition home or self-care (01) ==
LOC: JP.ED 10:20
DX: I13.0 Hypertensive heart and chronic kidney disease with heart failure and stage 1 through stage 4 chronic kidney disease, or unspecified chronic kidney disease (principal); I50.32 Chronic diastolic (congestive) heart failure; N18.31 Chronic kidney disease, stage 3a; E11.9 Type 2 diabetes mellitus without complications; R07.89 Other chest pain; E78.00 Pure hypercholesterolemia, unspecified; M10.9 Gout, unspecified; Z79.82 Long term (current) use of aspirin; Z88.6 Allergy status to analgesic agent; Z88.5 Allergy status to narcotic agent; Z88.1 Allergy status to other antibiotic agents; Z90.49 Acquired absence of other specified parts of digestive tract; Z79.899 Other long term (current) drug therapy
CPT/HCPCS: 36415; 71250; 80053; 84145; 84484; 85025; 85610; 85730; 86140; 93005; 99285; A9270

== ENCOUNTER 2024-02-12 18:05 | Inpatient (IN) | payer MEDICARE, BC ==
[2024-02-12] MEDS: Prochlorperazine 10 MG/2 ML SDV IVPUSH ONE (18:15)
[2024-02-12] MEDS: Sodium Chloride 0.9% 1,000 ML IV SCH ×2 (18:29→19:30)
[2024-02-12 18:33] LABS: BASOPHILS ABSOLUTE AUTO 0.05 K/uL (0.00-0.10); BASOPHILS PERCENT AUTO 0.4 % (0.1-1.3); EOSINOPHILS ABSOLUTE AUTO 0.51 K/uL (0.00-0.40); EOSINOPHILS PERCENT AUTO 4.2 % (0.0-5.4); HEMATOCRIT 38.2 % (34.3-46.0); HEMOGLOBIN 12.5 g/dL (11.2-15.5); IMMATURE GRAN ABSOLUTE AUTO 0.09 K/uL (0.00-0.23); IMMATURE GRAN PERCENT AUTO 0.7 % (0.0-0.7); LYMPHOCYTES PERCENT AUTO 39.7 % (11.4-47.7); MEAN CORPUSCULAR HEMOGLOBIN 30.9 pg (31.6-35.5); MEAN CORPUSCULAR HGB CONC 32.7 g/dL (31.6-35.5); MEAN CORPUSCULAR VOLUME 94.3 fL (81.4-99.0); MONOCYTES ABSOLUTE AUTO 0.79 K/uL (0.20-0.90); MONOCYTES PERCENT AUTO 6.5 % (3.3-12.6); NEUTROPHILS ABSOLUTE AUTO 5.86 K/uL (1.0-7.6); NEUTROPHILS PERCENT AUTO 48.5 % (40.0-78.1); PLATELET COUNT,PLT 215 K/uL (130-375); RED BLOOD CELL COUNT 4.05 M/uL (3.77-5.24); WHITE BLOOD CELL COUNT,WBC 12.1 K/uL (3.2-11.0)
[2024-02-12 18:34] LABS: BASE EXCESS ARTERIAL 0.8 mm/L; BICARBONATE,ARTERIAL 27.2 mmol/L (22.0-26.0); METHEMOGLOBIN 1.3 %; O2 SATURATION ARTERIAL 98.9 % (95.0-98.0); OXYHEMOGLOBIN 96.6 %; PCO2 ARTERIAL 54.3 mmHg (35.0-42.0); TOTAL HEMOGLOBIN 12.4 g/dL (12.0-16.0)
[2024-02-12 18:47] LABS: CREATININE 1.5 mg/dL (0.6-1.0); EST CRCL DRUG DOSING (CG) 20.77 mL/min; POTASSIUM,K 4.1 mmol/L (3.6-5.2); TROPONIN I HIGH SENSITIVITY 18.2 pg/mL (<=60.3)
[2024-02-12 18:48] LABS: ANION GAP 14.1 mmol/L (5.0-14.0)
[2024-02-12] MEDS: Ampicillin/Sulbactam Na 3 GM in Sodium Chloride 0.9% 100 ML IV ONE (19:38)
[2024-02-12] MEDS: methylPREDNISolone Sodium Succinate 40 MG/1 ML SDV IVPUSH ONE (19:43)
[2024-02-12] MEDS: Ondansetron 4 MG/2 ML SDV IVPUSH ONE (19:45)
[2024-02-12] MEDS ORDERED: Naloxone 0.4 MG/ML SDV IVPUSH PRN ×2 (20:14→20:45)
[2024-02-12] MEDS: fentaNYL 50 MCG/ML SDV IVPUSH ONE (20:24)
[2024-02-12] MEDS ORDERED: Albuterol/Ipratropium 3.0-0.5 MG/3 ML Neb Soln NEB PRN (20:45)
[2024-02-12] MEDS ORDERED: Ondansetron 4 MG/2 ML SDV IV PRN (20:45)
[2024-02-12] MEDS ORDERED: Albuterol 0.083% 2.5 MG/3 ML Neb Soln NEB PRN (20:45)
[2024-02-12] MEDS ORDERED: Ondansetron 4 MG Tab.DIS PO PRN (20:45)
[2024-02-12] MEDS: Enoxaparin 30 MG/0.3 ML Syringe SUBCUT SCH (21:31)
[2024-02-12] MEDS: Morphine 2 MG/ML SYRINGE IVPUSH PRN (21:36)
[2024-02-12] MEDS: atorvaSTATin 10 MG Tab PO SCH (21:40)
[2024-02-12] MEDS: Lisinopril 20 MG Tab PO SCH (21:40)
[2024-02-12] MEDS: amLODIPine 5 MG Tab PO SCH (21:40)
[2024-02-12] MEDS: Aspirin 81 MG Tab.EC PO SCH (21:40)
[2024-02-12] MEDS: Metoprolol Tartrate 50 MG Tab PO SCH (21:40)
[2024-02-12] MEDS: Magnesium Oxide 400 MG Tab PO SCH (21:40)
[2024-02-12] MEDS: Pantoprazole 40 MG Tab.CR PO SCH (21:41)
[2024-02-12] MEDS: Hypromellose 0.3% Ophth Soln 15 ML Bottle EYEBOTH SCH (21:41)
[2024-02-12] MEDS: Loperamide 1 MG/7.5 ML 7.5 ML UD Cup PO SCH (21:41)
[2024-02-12] MEDS: oxyCODONE 5 MG Tab PO PRN (22:16)
[2024-02-13] MEDS: methylPREDNISolone Sodium Succinate 40 MG/1 ML SDV IVPUSH SCH (01:16)
[2024-02-13 05:21] LABS: BASOPHILS PERCENT AUTO 0.1 % (0.1-1.3); EOSINOPHILS PERCENT AUTO 0.1 % (0.0-5.4); HEMATOCRIT 33.3 % (34.3-46.0); HEMOGLOBIN 10.6 g/dL (11.2-15.5); IMMATURE GRAN ABSOLUTE AUTO 0.05 K/uL (0.00-0.23); IMMATURE GRAN PERCENT AUTO 0.5 % (0.0-0.7); LYMPHOCYTES ABSOLUTE AUTO 0.61 K/uL (0.8-3.3); LYMPHOCYTES PERCENT AUTO 6.6 % (11.4-47.7); MEAN CORPUSCULAR HEMOGLOBIN 30.6 pg (31.6-35.5); MEAN CORPUSCULAR HGB CONC 31.8 g/dL (31.6-35.5); MEAN CORPUSCULAR VOLUME 96.2 fL (81.4-99.0); MONOCYTES ABSOLUTE AUTO 0.13 K/uL (0.20-0.90); MONOCYTES PERCENT AUTO 1.4 % (3.3-12.6); NEUTROPHILS ABSOLUTE AUTO 8.37 K/uL (1.0-7.6); NEUTROPHILS PERCENT AUTO 91.3 % (40.0-78.1); PLATELET COUNT,PLT 166 K/uL (130-375); RED BLOOD CELL COUNT 3.46 M/uL (3.77-5.24); WHITE BLOOD CELL COUNT,WBC 9.2 K/uL (3.2-11.0)
[2024-02-13 05:33] LABS: ANION GAP 11.1 mmol/L (5.0-14.0); CALCIUM 9.1 mg/dL (8.5-10.1); CREATININE 1.5 mg/dL (0.6-1.0); EST CRCL DRUG DOSING (CG) 20.77 mL/min; POTASSIUM,K 5.2 mmol/L (3.6-5.2)
[2024-02-13 05:36] LABS: BASOPHILS ABSOLUTE AUTO 0.01 K/uL (0.00-0.10); EOSINOPHILS ABSOLUTE AUTO 0.01 K/uL (0.00-0.40)
[2024-02-13] MEDS: Acetaminophen 325 MG Tab PO PRN (07:36)
[2024-02-13] MEDS: Ampicillin/Sulbactam Na 3 GM in Sodium Chloride 0.9% 100 ML IV SCH (09:23)
[2024-02-13] MEDS: Levothyroxine 88 MCG Tab PO SCH (09:25)
[2024-02-13] MEDS: Multivitamins with Iron/Calcium/Folic Acid/Minerals Tab PO SCH (09:28)
[2024-02-13] MEDS: Allopurinol 100 MG Tab PO SCH (09:28)
[2024-02-13] MEDS: Non-Formulary Medication 1 Each (Vitamin E [Vitamin E] 1,000 UNITS Cap) PO SCH (09:58)
[2024-02-14 05:47] LABS: CALCIUM 9.3 mg/dL (8.5-10.1); CREATININE 1.4 mg/dL (0.6-1.0); EST CRCL DRUG DOSING (CG) 22.25 mL/min; POTASSIUM,K 5.1 mmol/L (3.6-5.2)
[2024-02-14 05:49] LABS: ANION GAP 14.1 mmol/L (5.0-14.0)
[2024-02-14] MEDS: Furosemide 20 MG Tab PO PRN (10:50)
[2024-02-14] MEDS ORDERED: Glucose Gel 15 GM in 37.5 GM Tube PO PRN (15:34)
[2024-02-14] MEDS ORDERED: 50% Dextrose in Water 50 ML Syringe IV PRN (15:34)
[2024-02-14] MEDS: Insulin Lispro 100 Unit/ML 3 ML KwikPen SUBCUT SCH (17:29)
[2024-02-15 05:12] LABS: HEMOGLOBIN 10.2 g/dL (11.2-15.5); MEAN CORPUSCULAR HEMOGLOBIN 30.9 pg (31.6-35.5); MEAN CORPUSCULAR HGB CONC 32.9 g/dL (31.6-35.5); MEAN CORPUSCULAR VOLUME 93.9 fL (81.4-99.0); RED BLOOD CELL COUNT 3.3 M/uL (3.77-5.24); WHITE BLOOD CELL COUNT,WBC 10.2 K/uL (3.2-11.0)
[2024-02-15 05:30] LABS: CALCIUM 9.7 mg/dL (8.5-10.1); CREATININE 1.2 mg/dL (0.6-1.0); EST CRCL DRUG DOSING (CG) 25.96 mL/min; POTASSIUM,K 4.5 mmol/L (3.6-5.2)
[2024-02-15 05:33] LABS: ANION GAP 10.5 mmol/L (5.0-14.0)
[2024-02-15] MEDS: Amoxicillin/Clavulanate K 500-125 MG Tab PO SCH (20:32)
[2024-02-16] MEDS: Magnesium Hydroxide 400 MG/5 ML Susp 30 ML Cup PO PRN (17:09)
[2024-02-17] MEDS ORDERED: Lidocaine 4% 1 each Patch TOP SCH (14:00)
[2024-02-17] MEDS: Lidocaine 4% 1 each Patch TOP SCH (15:00)
[2024-02-17] MEDS: Bisacodyl 5 MG Tab PO ONE (15:00)
[2024-02-18 08:47] VITALS: BP 176/73; PULSE 72
== END 2024-02-18 10:15 | DRG 177 ==
LOC: JP.ED 18:05 → JP.MS 20:06
PROVIDERS: ADMIT Hospitalist; ATTEND Internal Medicine
PROC: 5A12012 Performance of Cardiac Output, Single, Manual (ICD-10-PCS; principal; 2024-02-12)
DX: T17.928A Food in respiratory tract, part unspecified causing other injury, initial encounter (principal); I46.9 Cardiac arrest, cause unspecified; I10 Essential (primary) hypertension; J69.0 Pneumonitis due to inhalation of food and vomit; E11.9 Type 2 diabetes mellitus without complications; I46.8 Cardiac arrest due to other underlying condition; Z79.890 Hormone replacement therapy; I13.0 Hypertensive heart and chronic kidney disease with heart failure and stage 1 through stage 4 chronic kidney disease, or unspecified chronic kidney disease; I50.32 Chronic diastolic (congestive) heart failure; J18.9 Pneumonia, unspecified organism; M19.90 Unspecified osteoarthritis, unspecified site; M10.9 Gout, unspecified; M81.0 Age-related osteoporosis without current pathological fracture; E03.9 Hypothyroidism, unspecified; E78.00 Pure hypercholesterolemia, unspecified; D64.9 Anemia, unspecified; N18.31 Chronic kidney disease, stage 3a; E83.42 Hypomagnesemia; E11.22 Type 2 diabetes mellitus with diabetic chronic kidney disease; Z95.0 Presence of cardiac pacemaker; Z88.5 Allergy status to narcotic agent; Z88.8 Allergy status to other drugs, medicaments and biological substances; Z79.82 Long term (current) use of aspirin; Z90.49 Acquired absence of other specified parts of digestive tract; Z98.49 Cataract extraction status, unspecified eye; Z79.899 Other long term (current) drug therapy; Z96.659 Presence of unspecified artificial knee joint
CPT/HCPCS: 36415; 36600; 71045; 71045-26; 71046; 80048; 82803; 82947; 83605; 84484; 85025; 85027; 92526-GN; 92610-GN; 93010; 94640; 94667; 94668; 96361; 96365; 96375; 97161-GP; 97530-GP; 99223; 99232; 99239; 99284-25; 99285; A9270-GY; J0295; J0780; J1650; J1815; J2270; J2405; J2919; J3010; J3490; J7030